=== PATIENT | female | born 1970 | race African-American/Black ===

== ENCOUNTER 2024-04-24 09:07 | Emergency (ER) | payer OTHER, SELFPAY ==
[2024-04-24 09:11] VITALS: BP 140/96; PULSE 127; RESP 20; TEMP 36.1; O2SAT 99
--- NOTE | 2024-04-24 09:22 | ED.GENADUL_ITS ---
Discharge Plan Disposition Patient Disposition: Home Discharge Details Clinical Impression: Closed fracture of left proximal humerus Primary Care Provider: Unknown,Unknown ED Provider: Patel Gamble Home Meds and New Rx's Prescriptions: New ketorolac 10 mg tablet 10 mg PO TID PRN (Reason: Pain) 5 Days Qty: 15 0RF Continued gabapentin 400 mg capsule 400 mg PO TID prednisone 10 mg tablet 10 mg PO DAILY levothyroxine [Euthyrox] 25 mcg tablet 25 mcg PO DAILY cyclobenzaprine 10 mg tablet 10 mg PO TID PRN (Reason: muscle spasm) Qty: 10 0RF Discharge Instructions Instructions: Upper Arm Fracture ED Additional Instructions: Please keep your arm in the sling but you may remove it for showering. You may perform task as normally capable without the use of left upper extremity Please continue to ice the shoulder to help with swelling and discomfort. If you have any significant worsening or change in symptoms feel free to return the emergency department for reassessment If you are unable to follow-up locally with orthopedist for further evaluation and discussion of stabilization or additional interventions if needed please follow-up with orthopedist when you return home Stand Alone Forms: Work Release Referrals: [facility] [Provider Group] (Please call the office tomorrow afternoon for discussion of follow-up appointment) Discharge Data Discharge Date/Time-TO BE ENTERED AT DEPARTURE: 04/24/24 10:44 HPI General Mode of arrival: ambulatory . Date/Time Provider Initiated Documentation: 04/24/24 09:16 . Limitations to Documentation: no limitations . Information obtained by: patient and RN notes reviewed . History of Present Illness 53 year old F presents to the emergency department with the chief complaint of Left shoulder injury, described as severe, Quality is described as sharp, and is localized to the left (Shoulder). Patient started experiencing this day(s) (1) and it has been constant. No relieving factors improve symptom(s), No exacerbating factors reported . Patient notes no other symptoms.. Patient did receive the following treatments prior to arrival, NSAID Related Data Home Medications ?Medication ?Instructions ?Recorded ?Confirmed cyclobenzaprine 10 mg tablet 10 mg PO TID PRN muscle spasm #10 04/24/24 tabs gabapentin 400 mg capsule 400 mg PO TID 04/24/24 04/24/24 ketorolac 10 mg tablet 10 mg PO TID PRN Pain 5 days #15 04/24/24 tabs levothyroxine 25 mcg tablet 25 mcg PO DAILY 04/24/24 04/24/24 (Euthyrox) prednisone 10 mg tablet 10 mg PO DAILY 04/24/24 04/24/24 Previous Rx's ?Medication ?Instructions ?Recorded cyclobenzaprine 10 mg tablet 10 mg PO TID PRN muscle spasm #10 04/24/24 tabs ketorolac 10 mg tablet 10 mg PO TID PRN Pain 5 days #15 04/24/24 tabs Allergies Allergy/AdvReac Type Severity Reaction Status Date / Time oxycodone (From Percocet) Allergy Intermediate rash Verified 04/24/24 09:13 hydrocodone (From Vicodin) Allergy rash Verified 04/24/24 09:13 General Stated Complaint: Orthopedic ROSS: 3 Review of Systems Constitutional Constitutional: Denies headache(s) ENT Ears, Nose, Mouth, and Throat: Denies headache(s) Cardiovascular Cardiovascular: Denies chest pain and Denies dyspnea Respiratory Respiratory: Denies dyspnea Musculoskeletal Musculoskeletal: Reports as per HPI, Reports arthralgias, Reports joint swelling and Reports limited range of motion Neurologic Neurologic: Denies headache(s) Exam Const General: cooperative, no acute distress and not ill appearing Orientation: alert, awake and oriented x3 HENMT Mouth: moist mucous membranes Resp Effort & Inspection: normal respiratory effort, able to speak in complete sentences and no respiratory distress Auscultation: clear to auscultation bilaterally Cardio Rate: regular rate Rhythm: regular rhythm Heart Sounds: S1 normal and S2 normal Skin General skin exam: no rashes or lesions noted Neuro General: patient alert, patient awake, patient oriented x3, moves all extremities and no focal motor deficits Sensory Exam: no sensory deficits noted Extrem General: normal exam except as noted Left upper extremity: shoulder/upper arm Details: tenderness Location: of the proximal humerus, swelling Location: of the proximal humerus and of the mid- shaft humerus, axillary nerve sensory function normal and abnormal ROM Details: held in an abnormal fashion Details: in ADduction and in internal rotation Course Vital Signs Vital signs: Vital Signs Temperature 36.1 C L 04/24/24 09:11 Pulse 127 H 04/24/24 09:11 Respiratory Rate 20 04/24/24 09:11 Blood Pressure 140/96 H 04/24/24 09:11 Pulse Oximetry 99 04/24/24 09:11 Temperature 36.1 C L 04/24/24 09:11 Temperature Source Skin 04/24/24 09:11 Pulse 127 H 04/24/24 09:11 Respiratory Rate 20 04/24/24 09:11 Blood Pressure 140/96 H 04/24/24 09:11 Blood Pressure Position Sitting 04/24/24 09:11 Pulse Oximetry 99 04/24/24 09:11 Oxygen Delivery Method Room Air 04/24/24 09:11 Oxygen Flow Rate 0 04/24/24 09:11 Pain Level 10 04/24/24 09:11 Medical Decision Making Patient presenting to the emergency department for chief complaint of fall with left shoulder injury. Patient states that she was standing on a chair to get something yesterday and fell landing on her aspect of left shoulder. Patient denies any other injury or trauma, head injury, syncope neck or back pain. Patient reports taking acetaminophen ibuprofen along with her normally prescribed muscle relaxer to help her with sleep. This morning woke up with continued swelling and pain causing her to come to the emergency department. Physical exam shows significant tenderness to the proximal humerus of the left arm along with the swelling. No clavicular tenderness, clear lung sounds throughout all lung plata, normal cardiac exam, pulse sensation and movement intact distal to injury. Will plan on performing radiological imaging for evaluation of potential fracture versus dislocation Review of radiological imaging shows proximal humerus fracture. Patient placed in a sling and was placed on Ortho follow-up. 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 Given patient's allergies to narcotics with reported rash and tongue swelling will continue with use of nonnarcotics and will give additional Flexeril as patient states she only has a couple tablets left that she normally uses for spinal sten osis. After discussion of diagnosis and plan of care patient has no further needs, questions, or concerns and states clear understanding to return to the emergency department for any worsening symptoms. This documentation was generated using [employer] system, please disregard any oddities of phrase or misspellings. Imaging Data Radiologic Study: Imaging: X-Ray Radiologist's impression: Exam(s) PROCEDURE INFORMATION: Exam: XR Left Shoulder Exam date and time: 04/24/2024 9:55 AM Age: 53 years old Clinical indication: Other: Trauma TECHNIQUE: Imaging protocol: Radiologic exam of the left shoulder. Views: 2 or more views. COMPARISON: No relevant prior studies available. FINDINGS: Bones/joints: Comminuted humeral head fracture with mild impaction. No definite dislocation. The acromioclavicular joint is intact Soft tissues: Normal. IMPRESSION: Comminuted/impacted humeral head fracture without dislocation Quality:SDOH Health Related Social Needs: No Data to Display PFSH All Active Problems (Updated 04/24/24 @ 10:29 by Patel Gamble NP) Closed fracture of left proximal humerus (Acute) Spinal stenosis (Acute) Arthritis (Acute) Social History Smoking/Tobacco Use Status: Current every day Tobacco Type: cigarettes Smoking risk assessment performed?: Yes Alcohol Intake: current Alcohol Intake frequency: a few times a week Drug use: Never Housing: apartment Do you feel safe at home: Yes Do you feel safe in your relationship?: Yes
--- NOTE | 2024-04-24 10:01 | DI.RAD_ITS ---
Exam(s) XR SHOULDER LT COMPLETE 2+V EXAM: XR SHOULDER LT COMPLETE 2+V CLINICAL HISTORY: trauma. TECHNIQUE: 2D digital imaging was performed of the left shoulder. Four images were obtained. AP, G rashey and Y views were obtained. COMPARISON: No exams were available for comparison FINDINGS: BONES: There is an acute fracture of the proximal humerus. The fracture occurs through the surgical neck and extends into the greater tuberosity. The fracture is comminuted. There is mild impaction o f the fracture noted. No bony destructive lesion is seen. JOINTS: No dislocation present. The acromioclavicular and glenohumeral joints are intact. SOFT TISSUE: Normal. IMPRESSION: Comminuted fracture involving the proximal humerus with involvement of the surgical neck and greater tuberosity. DATA REPOSITORY: RADIATION DOSE DELIVERED:
--- NOTE | 2024-04-24 10:06 | DI.VRAD_ITS ---
PROCEDURE INFORMATION: Exam: XR Left Shoulder Exam date and time: 04/24/2024 9:55 AM Age: 53 years old Clinical indication: Other: Trauma TECHNIQUE: Imaging protocol: Radiologic exam of the left shoulder. Views: 2 or more views. COMPARISON: No relevant prior studies available. FINDINGS: Bones/joints: Comminuted humeral head fracture with mild impaction. No definite dislocation. The acromioclavicular joint is intact Soft tissues: Normal. IMPRESSION: Comminuted/impacted humeral head fracture without dislocation Dictated and Authenticated by: Agus Pool MD. Ordering:CHRISTOPHER Sweeney MD
--- OUTSIDE RECORDS SUMMARY | 2024-04-24 10:22 | XMS_ITS | Encounter Summary ---
Author Organization [facility] Address [facility] [place] [address] Care Team Providers Care Records Tech Name Role Phone Pcp, No Primary Care Provider Unavailabl e Encounter Details Date Type Department Care Team (Late st Contact Info) Description 10/16/2022 Orders Only [facility] [address] [address] [facility] [place] [facility] [place] [address] Cleopatra Oro LPN Social History Tobacco Use Types Packs/Day Years Used Date Smoking Tobacco: Every Day Cigarettes Smokeless Tobacco: Never Alcohol Use Standard Drinks/Week Comments Yes 2 (1 standard drink = 0.6 oz pur e alcohol) Sex and Gender Information Value Date Recorded Sex Assigned at Not on file Gender Identity Not on file Sexual Orientation Not on file COVID-19 Exposure Response Date Recorded In the last 10 days, have yo u been in contact with someone who was confirmed or suspected to have Coronavirus/COVID-19? No / Unsure 10/11/2022 4:23 PM FISHING [employer]SEL [employer] documented as of this encounter Plan of Treatment Not on file documented as of this encounter Visit Diagnoses Not on filedocumented in this encounter Care Teams Records Tech Relationship Specialty Start Date End Date Pcp, No PCP - General 10/11/22 documented as of this encounter
--- OUTSIDE RECORDS SUMMARY | 2024-04-24 10:22 | XMS_ITS | Encounter Summary ---
Author Organization [facility] Address [address] [place] [address] Care Team Providers Care Registered Dietitian Name Role Phone Pcp, No Primary Care Provider Unavailabl e Reason for Visit * Reason Comments Pain * Office Visit - Consult or New Patient (Routine) - Closed Specialty Diagnoses / Procedures Referred By Contac t Referred To Contact Orthopaedic, Spine / Orthopaedics Diagnoses Osteoarthritis of spine with radiculopathy, cervical region M47.22 (ICD-10-CM) - Osteoarthritis of spine with radiculopathy, cervical region Procedures NEW PATIENT Stan Montes De Oca MD [facility] [place] [address] Stan Montes De Oca MD [facility] [address] [place] [address] Referral ID Status Reason Start Date Expiration Date V isits Requested Visits Authorized [id number] Closed Specialty Services Required 10/15/2022 11/19/2023 1 1 Encounter Details Date Type Department Care Team (Late st Contact Info) Description 10/15/2022 11:00 AM IT WEB DEVELOPMENT CONSULTANT Office Visit [facility] [address] [place] [address] Stan Montes De Oca MD [facility] [place], [place] [id number] Cervical spinal stenosis (Primary Dx); Radiculopathy of cervical spine; Congenital cervical spine stenosis; Cervical spondylosis with myelopathy and radiculopathy; Neural foraminal stenosis of cervical spine Social History Tobacco Use Types Packs/Day Years Used Date Smoking Tobacco: Every Day Cigarettes Smokeless Tobacco: Never Tobacco Cessation:Ready to Q uit: Not Asked; Counseling Given: Not Answered Alcohol Use Standard Drinks/Week Comments Yes 2 [...] Coronavirus/COVID-19? No / Unsure 10/11/2022 4:23 PM IT WEB DEVELOPMENT CONSULTANT documented as of this encounter Progress Notes * Stan Montes De Oca MD - 10/15/2022 11:00 AM CST [facility] Spine Surgery Patient name: Annika Finnegan Date of : 1970 Date of visit: 10/15/22 Provider: Stan Montes De Oca MD Referred by: Stan Montes De Oca MD [facility] [place] [address] Chief Complaint Patient presents with ??? Neck - Pain Right arm pain and numbness Neck pain: 0%; Arm pain: 100%. History of present illness: Today I had the pleasure of seeing Annika Finnegan in our spine surgery clinic. She is a 52 y.o. female who presents for evaluation of right arm pain and numbness which started early August 2022. Patient recalls no known injury associated with the onset of symptoms. She describes her pain originates in the upper mid back, goes across her scapula and down the right arm and stops about the rightbiceps area. This pain is moderate, and has been stable over time. Today, her pain level is at a 5/10 of intensity. Her pain is aggravated by sitting, and overused while doing housework, and improvedwith laying, resting and medications. She also noticed worsening pain with neck extension and rotati ng towards the right. Subjective weakness is present in her hands and right wrist, although she says this been going on for several years where she has been unable to extend bilateral thumbs and has had significant weakness extending her right wrist and bilateral finger weakness. Numbness is present and it is constant , in the right ring and small finger. Patient reports she has not noted gait instability, and does not use an assistive device for ambulation. She can climb stairs without difficulty. She has noted hand clumsiness or difficulty with fine motor functions, but she attributes this to her longstanding history of finger weakness. She reports absence of bladder and/or bowel control issues. 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 She states that these symptoms do interfere with her ability to perform her occupation and/or participate in activities she enjoys. She has tried the following treatments: Physical therapy: None Medications: Acetaminophen, NSAIDs, Steroids, Gabapentin, Muscle relaxants and [place] as needed whenher pain is really bad. She is only been taking [place] for the past 3 days. She also started a Medrol Dosepak yesterday with slight improvement in her pain. Spinal injections: No Spinal surgery: No Past medical history: She has no past medical history on file. Past surgical history: She has a past surgical history that includes Tubal ligation. Allergies: Percocet [oxycodone-acetaminophen] and Vicodin [hydrocodone-acetaminophen] Medications: She has a current medication list which includes the following prescription(s): cyclobenzaprine, gabapentin, hydrocodone-acetaminophen, ibuprofen, prednisone, and diclofenac. Family history: Her family history is not on file. Social History Occupational History ??? Not on file Tobacco Use ??? Smoking status: Every Day Packs/day: 1.00 Types: Cigarettes ??? Smokeless tobacco: Never Substance and Sexual Activity ??? Alcohol use: Yes Alcohol/week: 2.0 - 3.0 standard drinks Types: 2 - 3 Cans of beer per week ??? Drug use: Never ??? Sexual activity: Defer Review of Systems: I have reviewed all systems of the ROS with the patient, and it is listed in the clinical support section of the record. The patient intake section, which I have reviewed, provides additional information to the medical history and ROS. The patient's primary care physician will help with any other symptoms unrelated to her spine complaints. Physical Exam: Vital signs: There were no vitals taken for this visit.. Annika is accompanied today by her no relatives. She is alert, oriented, and cooperative with exam. She ambulates with a/an normal gait and does not use an assistive device for ambulation. She is ableto tandem walk, ableto toe walk, and able to heel walk. There is no gross coronal and/or sagittal plane deformity The skin is intact in the anterior neck and posterior cervical area. There are no scars from previous procedures. There is no tenderness to palpation over the cervical spine. There is pain with cervical spine range of motion worse with extension and rotating the cervical spine towards the right, (Spurling test) which recreates the right-sided arm pain extending into her biceps area. Motor exam: Upper Extremity Deltoids/Shoulder ER: Left: 4/5 Right: 4/5 Biceps: Left: 4+/5 Right: 4+/5 Wrist extensors: Left: 3+/5 Right: 2/5 Triceps: Left: 5/5 Right 5/5 Finger flexors/Oxygen Tank Filler: Left 4/5 Right 3/5 Hand Intrinsics: Left 3/5 Right 2/5 Lower Extremity IP/Hip adductors: Left: 4/5 Right: 4/5 Quads: Left: 5/5 Right: 5/5 TA: Left: 5/5 Right 5/5 EHL: Left 4-/5 Right 4/5 GSC: Left 5/5 Right 5/5 Reflexes: hyporeflexic throughout Sensory: There is absent sensation on the right small and ring finger. Special tests: Meyer's: negative bilaterally Clonus: No Babinski: absent bilaterally Lhermitte's sign: negative Spurling sign: Positive Imaging: X-Rays of the cervical spine were reviewed and interpreted by me today (Date/s: 10/11/22). The radiology report was reviewed. These reveal multilevel spondylosis worse at C2-3, C3-4, C4-5, C5-6, C6-C7, there is a slight anterolisthesis of C7 on T1. There is congenital stenosis of the spinal canal. An MRI of the cervical spine was reviewed and interpreted by me today (Date/s: 10/11/2022). The radiology report was reviewed. It shows multilevel disc bulges with mild stenosis at C3-4 with flattening of the spinal cord, moderate/severe stenosis at C4-5 with a CSF effacement circumferentially and flattening of the spinal cord, mild stenosis at C5-6 with flattening the spinal cord. There is mild foraminal stenosis bilaterally at C3-4, severe foraminal stenosis at C4-5 on the right, moderate on the left, Severe bilateral foraminal stenosis at C5-6, severe foraminal stenosis at C6-7 on the right, moderate on the left. Impression: 1. Cervical spinal stenosis 2. Radiculopathy of cervical spine 3. Congenital cervical spine stenosis 4. Cervical spondylosis with myelopathy and radiculopathy 5. Neural foraminal stenosis of cervical spine Plan: We discussed the diagnosis, the natural history and surgical and non-surgical treatment options. I had an extensive discussion with her today regarding her symptoms, they are somewhat atypical, in the sense that she presents with profound bilateral hand intrinsic weakness and decreased fine motor function suggestive of myelopathy, but she has severe radicular pain in a C6 distribution. While her symptoms may be amenable to surgical intervention, additional workup is needed to make a specific surgical recommendation. I have ordered a cervical spine CT scan to further assess the foraminal stenosis which could explain her radicular pain, and this is not readily seen on MRI, a nerve conduction study to rule out any peripheral nerve issue as she has had longstanding inability to extend her bilateral thumbs, right wrist weakness, and bilateral hand intrinsic weakness. I ordered a right C5-6 transforaminal injection, as I suspect most of her radicular pain is from the right C6 nerve root. I refilled her gabapentin and Flexeril as this provides improvement in her symptoms. I referred her tophysical therapy. All of these will further assist with generating an adequate treatment plan. Should she fail conservative management, and depending on the degree of foraminal stenosis, specifically that at C6-C7, I will consider a two-level ACDF from C4-C6 versus a 3 level ACDF from C3-4 to C7. Patient will follow up with myself in 4 week(s), or call our office for a sooner follow if there's any issues and/or worsening symptoms. Stan Montes De Oca MD Nematology Teacher of Orthopaedic Surgery This note was composed in part with assistance from voice recognition software and may contain unrecognized grammatical errors. WEB DEVELOPMENT CONSULTANT documented in this encounter Plan of Treatment Not on file documented as of this encounter Visit Diagnoses Diagnosis Cervical spinal stenosis- Primary Radiculopathy of cervical spine Congenital cervical spine stenosis Cervical spondylosis with myelopathy and radiculopathy Neural foraminal stenosis of cervical spine documented in this encounter Care Teams Registered Dietitian Relationship Specialty Start Date End Date Pcp, No PCP - General 10/11/22 documented as of this encounter
--- OUTSIDE RECORDS SUMMARY | 2024-04-24 10:22 | XMS_ITS | Patient Health Record ---
Author Organization [facility] Address [address] [place] [address] Care Team Providers Care Table Cut Off Saw Operator Name Role Phone Reed [id number] Mis Unavailable Sariah [id number] Priscila Unavailable [phone] 20 Allergies Allergen (clinical drug ingredient) Drug/Non Drug Allergy documented on EMR Reaction Allergy Type Onset Date Status hydrocodone HYDROcodone hives Drug Allergy Act michael Reason For Referral No Information Medications Medication SIG (Take, Route, Frequency, Duration) Notes Start Date End Date Status Diclofenac 35 MG 1 capsule as needed Orally Three times a day As needed Active Ibuprofen 800 MG 1 tablet with food or milk as needed Orally every 8 hrs As needed Active Cyclobenzaprine HCl 10 MG 1 tablet at bedtime as needed Orally Once a day As needed Active Gabapentin 400 MG 1 capsule Orally 3 t imes a day Active Immunizations Vaccine Route Administration Date Status Comme nts PPD Aplisol ID Intradermal 07/10/2023 Administered Problems Problem Type SNOMED Code ICD Code Onset Dates Problem Status W/U Status Risk Notes Problem Osteoarthritis (322784495) Unspecified osteoarthritis, unspecified site (M19.90) Active confirmed Vital Signs Height 68 in 06/11/2023 Weight 139 lbs 06/11/2023 BMI 21.13 kg/m2 06/11/2023 Encounters Encounter Location Date Provider Diagnosis [id number] [facility] [address] [place] [address] 06/11/2023 Priscila Rolle Physical exam Z00.00 07140 [facility] [address] [place] [address] 07/10/2023 Mis Mcbride PPD screening test Z11.1 [id number] [facility] [address] [place] [address] 07/12/2023 Mis Mcbride PPD screening test Z11.1 [id number] [facility] [address] [place] [address] 06/10/2023 Assessments Encounter Date Diagnosis (ICD Code) Assessment Notes Treatment Notes Treatment Clinical Notes 06/11/2023 Physical exam (ICD-10 - Z00.00) Review with the patient or customer service representative teller any required lab work, forms, or reporting requirements for physical. Order any necessary outside lab work and complete the required forms or documentation, scan and return to the patient. 07/10/2023 PPD screening test (ICD-10 - Z11.1) Patient reports they have never had a positive ppd reaction. 07/12/2023 PPD screening test (ICD-10 - Z11.1) Document patient's PPD results in their immunization history and import PPD results from the right chart panel ([facility]). Scan PPD result form into patient's chart. Plan Of Treatment No Information Insurance Providers Payer Name Payer Address Payer Phone Subscriber Number Group Number Insured Name Patient Relationship to Insured Coverage Start Date Coverage End Date [facility] [address] [place] [address] [id number] Annika Finnegan Self - patient is the insured Medical (General) History Medical History History ICD Code Spinal stenosis M48.00 Unspecified osteoarthritis, unspecified site M19.90 Surgical History Surgery Date(Month/Year) Bilateral tubal ligation 22 years ago
--- OUTSIDE RECORDS SUMMARY | 2024-04-24 10:22 | XMS_ITS | Encounter Summary ---
Author Organization [facility] Address [facility] [place] [address] Care Team Providers Care Broaching Machine Operator Name Role Phone Pcp, No Primary Care Provider Unavailabl e Reason for Visit * Reason Comments Arm Pain * Auth/Cert (Routine) Specialty Diagnoses / Procedures Referred By Contac t Referred To Contact Diagnoses Osteoarthritis of spine with radiculopathy, cervical region Referral ID Status Reason Start Date Expiration Date Visits Re quested Visits Authorized [id number] 1 1 Encounter Details Date Type Department Care Team (Late st Contact Info) Description 10/11/2022 4:30 PM IMPROVEMENT INTERN - 10/13/2022 3:37 PM IMPROVEMENT INTERN Emergency [address] [id number] Sumeet Neves MD [address] [place] [address], [address] [place] [address] Amadeo Kennedy MD [address] [place] [id number] Mary Galvan MD [address] [place] [phone] Vesta Tesfaye MD [address] [place] [id number] Discharge Disposition: Home or Self Care Social History Tobacco Use Types Packs/Day Years [...] Coronavirus/COVID-19? No / Unsure 10/11/2022 4:23 PM IMPROVEMENT INTERN documented as of this encounter Last Filed Vital Signs Vital Sign Reading Time Taken Comments Blood Pressure 156/91 10/13/2022 12:00 PM IMPROVEMENT INTERN Pulse 63 10/13/2022 12:00 PM IMPROVEMENT INTERN Temperature 36.5 ??C (97.7 ??F) 10/13/2022 12:[address] Respiratory Rate 18 10/13/2022 12:00 PM IMPROVEMENT INTERN Oxygen Saturation 100% 10/13/2022 12:00 PM IMPROVEMENT INTERN Inhaled Oxygen Concentration - - Weight 68 kg (150 lb) 10/11/2022 4:24 PM IMPROVEMENT INTERN Height 177.8 cm (5' 10) 10/11/2022 11:23 PM IMPROVEMENT INTERN Body Mass Index 21.52 10/11/2022 4:24 PM IMPROVEMENT INTERN documented in this encounter Discharge Summaries * Vesta Tesfaye MD - 10/13/2022 3:11 PM CST Images from the original note were not included. HOSPITALIST DISCHARGE SUMMARY PATIENT: Annika Finnegan ROOM:[id number]/[id number] :1970 FACILITY: [facility] PCP: No Pcp DATE OF ADMISSION: 10/11/2022 DATE OF DISCHARGE: 10/13/2022 ADMISSION DIAGNOSIS: Osteoarthritis of spine with radiculopathy, cervical region [M47.22] DISCHARGE DIAGNOSES: Principal Problem: Osteoarthritis of spine with radiculopathy, cervical region Active Problems: Compression fracture of T12 vertebra with routine healing Intractable pain Resolved Problems: * No resolved hospital problems. * HOSPITAL COURSE: Annika Finnegan is a 52 y.o. female with past medical history significant for arthritis, tobacco dependence who presented to the ED with chief complaint of pain and tingling from neck down to right arm intermittent nature but acutely worsening today. She was noted to have significant OA of the cervical spine likely leading to radicular symptoms. She was also noted to have acute on chronic T 12 compression fracture without retropulsion. Ortho spine was consulted from the ED who recommended short-term steroids and outpatient follow- up. She was admitted for further pain control. She was startedon PO regimen with gabapentin, NSAIDs, muscle relaxant, and narcotic for breakthrough. She was discharged home and referred to spine surgeon for further follow-up. PHYSICAL EXAM: Vital Signs (last day) Date/Time Temp Pulse Resp BP SpO2 10/13/22 1200 36.5 (97.7) 63 18 156/91 100 10/13/22 0800 37 (98.6) 61 16 138/77 100 10/13/22 0355 37 (98.6) 66 15 128/81 100 10/12/22 2354 36.7 (98.1) 66 16 134/84 100 10/12/22 1906 36.9 (98.5) 69 17 120/68 100 10/12/22 1656 36.8 (98.2) 76 20 158/92 100 10/12/22 1228 36.5 (97.7) 70 16 121/73 100 10/12/22 0729 36.9 (98.4) 68 18 119/76 100 10/12/22 0300 36.9 (98.4) 70 20 129/77 98 PHYSICAL EXAM: GEN: Alert and appropriately conversant HEENT: atraumatic and normocephalic NECK: Supple and nontender CHEST: CTA, no wheezes, no rhonchi, no crackles CARDIOVASCULAR: Normal rate with regular rhythm ABDOMEN: Soft, nontender, nondistended, bowel sounds are present EXTREMITIES: no edema and no cyanosis SKIN: No rash, dry and warm NEUROLOGY: No new focal motor or sensory deficits; dminished sensation to light touch in RUE medialforearm and digits 4/5. Strength intact and symmetric. DISCHARGE CONDITION: Improved DISCHARGE MEDICATIONS: Discharge Medications New Medications Sig cyclobenzaprine 5 mg tablet Commonly known as: FLEXERIL 5 mg, oral, 3 times daily PRN gabapentin 400 mg capsule Commonly known as: NEURONTIN 400 mg, oral, 3 times daily PRN HYDROcodone-acetaminophen 5-325 mg per tablet Commonly known as: NORCO 1 tablet, oral, Every 4 hours PRN predniSONE 20 mg tablet Commonly known as: DELTASONE Start taking on: October 13, 2022 Take 2 tablets (40 mg total) by mouth daily for 5 days, THEN 1 tablet (20 mg total) daily for 3 days, THEN 0.5 tablets (10 mg total) daily for 4 days. Medications To Continue Sig diclofenac 50 mg EC tablet Commonly known as: VOLTAREN 50 mg, oral, 3 times daily, 10/04/22 #20. Pt confirmed she take it PRN for pain and inflammation ibuprofen 800 mg tablet Commonly known as: ADVIL,MOTRIN 800 mg, oral, As needed DISCHARGE INSTRUCTIONS: Other Instructions Call provider for: Clinical worsening (Feeling worse) Call provider for: difficulty breathing, headache or visual disturbances Call provider for: hives Call provider for: persistent dizziness or light-headedness Call provider for: persistent nausea or vomiting Call provider for: redness, tenderness, or signs of infection (pain, swelling, redness, odor or green/yellow discharge around incision site) Call provider for: severe uncontrolled pain Call provider for: temperature >100.4 FUTURE SCHEDULED APPOINTMENTS AT [facility]: No future appointments. MOST RECENT LABS AND IMAGING (This may not include all labs and imaging done during hospitalization) Results from last 7 days Lab Units 10/13/2252010/12/22 0510/11/22 2218 [id number] RBC AUTO x10(6)/mcL 4.16 4.48 4.44 [id number] WBC AUTO x10(3)/mcL 5.8 5.4 6.2 93 HEMOGLOBIN gm/dL 11.7* 13.0 12.6 244 HEMATOCRIT % 37 39 38 [id number] PLATELETS AUTO x10(3)/mcL 276 317 316 Results from last 7 days Lab Units 10/13/22 0510/12/22 0533 10/11/22 2310 [id number] SODIUM mmol/L 138 136 012 1334217 POTASSIUM mmol/L 3.8 4.3 3.4 4908639 CHLORIDE mmol/L 108* 106 243 [id number] CARBON DIOXIDE mmol/L 23 19* 19* [id number] BUN mg/dL 20 16 18 269 CREATININE BLOOD mg/dL 0.68 0.71 0.75 [id number] CALCIUM mg/dL 8.9 9.6 9.6 7953777 GLUCOSE BLD mg/dL 89 151* 133* X-ray thoracic spine 2 views Result Date: 10/11/2022 1. No acute osseous findings. 2. Mild scoliosis. ws:[id number] Electronically Signed By SALOMON MENESES on 2022-10-11 20:54 CTZ Referring providers may call my direct line MRI cervical spine without contrast Result Date: 10/11/2022 1. Moderate to severe multilevel degenerative changes throughout the cervical spine with stenosis most significant at C3-C4, C4-C5, C5-C6 and C6-C7. 2. Heterogeneous nodule arising from the LEFT inferior thyroid lobe. Recommend nonemergent ultrasound for further evaluation. ws:[id number] Electronically Signed By SALOMON MENESES on 2022-10-11 18:55 CTZ Referring providers may call my direct line MRI thoracic spine without contrast Result Date: 10/11/2022 1. Findings which is for mild acute on chronic T12 compression fracture. No retropulsion. 2. No significant central canal or foraminal stenosis. 3. Small LEFT renal cyst. 4. Mild scoliosis centered at T12. ws:[id number] Electronically Signed By SALOMON MENESES on 2022-10-11 19:12 CTZ Referring providers may call my direct line XR C-Spine AP, lateral, flex, ext Result Date: 10/11/2022 1. No acute osseous findings. 2. Severe multilevel disc degeneration ws:[id number] Electronically Signed By SALOMON MENESES on 2022-10-11 20:53 CTZ Referring providers may call my direct line TOTAL DISCHARGE TIME: 15 minutes spent on clinical care at bedside as well as care coordination andcounseling Vesta Tesfaye MD Notes are generated using voice recognition software. It was reviewed briefly though errors may persist. Please contact me with any questions. OVEMENT INTERN documented in this encounter Discharge Instructions * Discharge Instructions* Sumeet Neves MD - 10/11/2022 9:32 PM IMPROVEMENT INTERN Please follow-up with Dr. Bradford Mendoza at the number and clinic address listed below. You may take your Medrol Dosepak as prescribed as well as the gabapentin. OVEMENT INTERN * Attachments The following attachments cannot be sent through Care Everywhere. * Degenerative Disk Disease (Swazi) documented in this encounter Medications at Time of Discharge Medication Sig Dispensed Refills Start Date End Date cyclobenzaprine 5 mg tablet (FLEXERIL) Take 1 tablet (5 mg total) by mouth 3 times a day as needed for muscle spasms for up to 10 days. 30 tablet 10/13/2022 gabapentin 400 mg capsule (NEURONTIN) Take 1 capsule (400 mg total) by mouth 3 times a day as needed (nerve pain) for up to 5 days. 15 capsule 10/13/2022 predniSONE 20 mg tablet (DELTASONE) Take 2 tablets (40 mg total) by mouth daily for 5 days, THEN 1 tablet (20 mg total) daily for 3 days, THEN 0.5 tablets (10 mg total) daily for 4 days. 15 tablet 10/13/2022 diclofenac sodium 50 mg tablet,delayed release (VOLTAREN) Take 1 tablet (50 mg total) by mouth 3 times a day. 10/04/22 #20. Pt confirmed she take it PRN for pain and inflammation 10/04/2022 ibuprofen 800 mg tablet (ADVIL,MOTRIN) Take 1 tablet (800 mg total) by mouth as needed for mild pain. HYDROcodone 5 mg-acetaminophen 325 mg tablet (NORCO)Indications:O steoarthritis of spine with radiculopathy, cervical region Take 1 tablet by mouth every 4 hours as needed for moderate pain or severe pain for up to 3 days. 12 tablet 10/13/2022 10/16/2022 documented as of this encounter Progress Notes * Mary Galvan MD - 10/12/2022 2:36 PM CST Images from the original note were not included. 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 The work-up revealed acute on chronic compression fracture of T12and cervical disc pathology. The patient is admitted to the general medicine floor and treated for the following Acute on chronic T12 compression fracture Kyphoplasty per IR has been requested for tomorrow morning Deferred to the hospitalist assuming care of this patient in the morning to follow-up Pain is better controlled with gabapentin scheduled and Dilaudid as needed I will add [place] as needed Add Senokot Hyperglycemia The patient received glucocorticoids in the hospital Denies a history of diabetes Avoid anticoagulation in the setting of potential intervention to his spine DVT PROPHYLAXIS: SCDs ANTICIPATED DISCHARGE IN NEXT 24H: No OBJECTIVE: Vital Signs (last day) Date/Time Temp Pulse Resp BP SpO2 10/12/22 1228 36.5 (97.7) 70 16 121/73 100 10/12/22 0729 36.9 (98.4) 68 18 119/76 100 10/12/22 0300 36.9 (98.4) 70 20 129/77 98 10/11/22 2313 36.5 (97.7) 70 20 136/89 100 10/11/22 2211 36.8 (98.2) 69 18 143/72 100 10/11/227 -- 79 20 145/81 99 10/11/22 1948 -- 79 18 100/64 99 10/11/22 1624 36.6 (97.9) 98 18 142/106 99 I/O (24H) 10/11 0700 10/12 0659 10/12 0700 10/13 0659 P.O. 222 Total Intake(mL/kg) 222 (3.3) Net +222 GENERAL: Awake alert oriented, interactive, cranial nerves II through XII grossly intact, good eye contact good affect CHEST: CTA, no wheezes, no rhonchi, no crackles CARDIOVASCULAR: Normal rate and regular rhythm,no murmur, regular rate and rhythm ABDOMEN: Soft, nontender, nondistended, bowel sounds are present EXTREMITIES: No cyanosis, no edema, No clubbing SKIN: No rash, dry and warm. NEUROLOGY: No new focal motor or sensory deficits CURRENT MEDICATIONS: gabapentin, 300 mg, oral, TID DATA REVIEWED: Results from last 7 days Lab Units 10/12/22 0533 10/11/228 [id number] WBC AUTO x10(3)/mcL 5.4 6.2 93 HEMOGLOBIN gm/dL 13.0 12.6 244 HEMATOCRIT % 39 38 [id number] PLATELETS AUTO x10(3)/mcL 317 316 Results from last 7 days Lab Units 10/12/22 0533 10/11/22 2310 10/11/228 [id number] SODIUM mmol/L 136 137 135* [id number] POTASSIUM mmol/L 4.3 3.4 3.3 4114373 CHLORIDE mmol/L 106 103 280 0298800 CARBON DIOXIDE mmol/L 19* 19* 18* [id number] BUN mg/dL 16 18 16 269 CREATININE BLOOD mg/dL 0.71 0.75 0.72 2692856 CALCIUM mg/dL 9.6 9.6 9.3 4469908 GLUCOSE BLD mg/dL 151* 133* 112* X-ray thoracic spine 2 views Result Date: 10/11/2022 1. No acute osseous findings. 2. Mild scoliosis. ws:[id number] Electronically Signed By SALOMON MENESES on 2022-10-11 20:54 CTZ Referring providers may call my direct line MRI cervical spine without contrast Result Date: 10/11/2022 1. Moderate to severe multilevel degenerative changes throughout the cervical spine with stenosis most significant at C3-C4, C4-C5, C5-C6 and C6-C7. 2. Heterogeneous nodule arising from the LEFT inferior thyroid lobe. Recommend nonemergent ultrasound for further evaluation. ws:[id number] Electronically Signed By SALOMON MENESES on 2022-10-11 18:55 CTZ Referring providers may call my direct line MRI thoracic spine without contrast Result Date: 10/11/2022 1. Findings which is for mild acute on chronic T12 compression fracture. No retropulsion. 2. No significant central canal or foraminal stenosis. 3. Small LEFT renal cyst. 4. Mild scoliosis centered at T12. ws:[id number] Electronically Signed By SALOMON MENESES on 2022-10-11 19:12 CTZ Referring providers may call my direct line XR C-Spine AP, lateral, flex, ext Result Date: 10/11/2022 1. No acute osseous findings. 2. Severe multilevel disc degeneration ws:[id number] Electronically Signed By SALOMON MENESES on 2022-10-11 20:53 CTZ Referring providers may call my direct line Mary Galvan MD Notes are generated using voice recognition software. It was reviewed briefly, however, errors may persist. Please contact me with any questions. OVEMENT INTERN * Maria Dolores Barraza PharmD - 10/12/2022 12:32 PM CST Medication History Note (Pharmacy) Patient Name: Annika Finnegan Date: 10/12/2022 A best possible medication history has been performed for Annika Finnegan by a pharmacy java development team lead using the following sources of information: Patient The patient???s preferred pharmacy is: [facility] [address] [place] [address] Additional Information: Sandro Alcantara Oct 12, 2022 11:29 AM CSMD no results. Pt confirmed med list. Pharmacy has updated and finalized the PLATFORM OPERATIONS DIRECTOR Med List: Medications Prior to Admission Medication Sig ??? [DISCONTINUED] acetaminophen ER 650 mg tablet,extended release (TYLENOL) Take 1 tablet (650 mg total) by mouth as needed for mild pain or moderate pain (arthritis pain). ??? diclofenac sodium 50 mg tablet,delayed release (VOLTAREN) Take 1 tablet (50 mg total) by mouth 3 times a day. 10/04/22 #20. Pt confirmed she take it PRN for pain and inflammation ??? ibuprofen 800 mg tablet (ADVIL,MOTRIN) Take 1 tablet (800 mg total) by mouth as needed for mildpain. Please call with any questions. Thank you, Maria Dolores K Madi, PharmD OVEMENT INTERN documented in this encounter H&P Notes * Rosa Garcia Gladys, NEWSPAPER PHOTOJOURNALIST - 10/11/2022 11:09 PM CST Images from the original note were not included. HOSPITALIST HISTORY & PHYSICAL PATIENT: Annika Finnegan :1970 PCP: No Pcp FACILITY: [facility] CHIEF COMPLAINT: Arm tingling HISTORY OF PRESENT ILLNESS: Annika Finnegan is a 52 y.o. female with past medical history significant for arthritis, tobacco dependence who presented to the ED with chief complaint of pain and tingling from neck down to right arm intermittent nature but acutely worsening today. Associated weakness. Numbness and tingling symptoms now constant in localized to fourth and fifth digits of right hand. ED lab work largely unremarkable. Serum carbon dioxide 18. X-ray thoracic spine no acute osseous findings mild scoliosis. [id number] no acute osseous findings several multilevel disc degeneration. MRI thoracic spine without contrast findings which is for mild acute on chronic T12 compression fracture no retropulsion no sign ificant central canal or foraminal stenosis small left renal cyst mild scoliosis centered at T12. MRI cervical spine moderate to severe multilevel degenerative changes throughout the cervical spine with stenosis most significant at C3-C4 C4-C5 C5-C6 and C6-C7, at her cutaneous nodule arising from the left inferior thyroid lobe recommend nonemergent ultrasound for further evaluation. Orthopedic spine surgeon Dr. Bradford Mendoza consulted in the ED via phone. Recommended no surgical intervention at this time but will need outpatient follow-up for cervical spine stenosis as well as incidentally noted T12 mild compression fracture. Recommended Medrol Dosepak, gabapentin. Patient pain was not able to b e controlled with IV narcotics in the ED. Admitted for intractable pain. Patient lying in bed in no acute distress at time of exam. She endorses above presentation to the ED. Reports paresthesias and pain progressively worsening over the past 3 weeks now constant in nature. Denies any chest pain, shortness of breath, abdominal pain, fevers, chills, abnormal bowel meds. Pain is still present but improving. PAST MEDICAL HISTORY: History reviewed. No pertinent past medical history. History reviewed. No past medical history pertinent negatives. PAST SURGICAL HISTORY: Past Surgical History: Procedure Laterality Date ??? TUBAL LIGATION ALLERGIES: Allergies Allergen Reactions ??? Percocet [Oxycodone-Acetaminophen] Hives (only) ??? Vicodin [Hydrocodone-Acetaminophen] Hives (only) HOME MEDICATIONS: Current Outpatient Medications Medication Instructions ??? acetaminophen (TYLENOL) 650 mg, oral, As needed ??? diclofenac (VOLTAREN) 50 mg, oral, 3 times daily ??? ibuprofen (ADVIL,MOTRIN) 800 mg, oral, As needed CURRENT INPATIENT MEDS: Scheduled Meds: gabapentin, 300 mg, oral, TID Continuous Infusions: PRN Meds: acetaminophen, 650 mg, oral, Q6H PRN HYDROmorphone, 0.5 mg, intravenous, Q6H PRN melatonin, 3 mg, oral, Nightly PRN polyethylene glycol, 17 g, oral, Daily PRN FAMILY HISTORY: History reviewed. No pertinent family history. SOCIAL HISTORY: Social History Socioeconomic History ??? Marital status: Single Spouse name: Not on file ??? Number of children: Not on file ??? Years of education: Not on file ??? Highest education level: Not on file Occupational History ??? Not on file Tobacco Use ??? Smoking status: Every Day Packs/day: 1.00 Types: Cigarettes ??? Smokeless tobacco: Never Substance and Sexual Activity ??? Alcohol use: Yes Alcohol/week: 2.0 - 3.0 standard drinks Types: 2 - 3 Cans of beer per week ??? Drug use: Never ??? Sexual activity: Defer Other Topics Concern ??? Not on file Social History Narrative ??? Not on file Social Determinants of Health Financial Resource Strain: Not on file Food Insecurity: Not on file Transportation Needs: Not on file Physical Activity: Not on file Stress: Not on file Social Connections: Not on file Intimate Partner Violence: Not on file Housing Stability: Not on file REVIEW OF SYSTEM: 10 systems reviewed and are negative except as per HPI VITALS: Vital Signs (last day) Date/Time Temp Pulse Resp BP SpO2 10/12/22 0300 36.9 (98.4) 70 20 129/77 98 10/11/22 2313 36.5 (97.7) 70 20 136/89 100 10/11/22 2211 36.8 (98.2) 69 18 143/72 100 10/11/222056 -- 79 20 145/81 99 10/11/22 1948 -- 79 18 100/64 99 10/11/22 1624 36.6 (97.9) 98 18 142/106 99 PHYSICAL EXAM: GEN: Alert and appropriately conversant in no acute distress; oriented to person, place, time HEENT: Atraumatic and normocephalic NECK: Supple,not tender, trachea midline CHEST: CTA, no wheezes, no rhonchi, no crackles with no increased work of breathing, on room air CARDIOVASCULAR: Normal rate with regular rhythm; appears well perfusing ABDOMEN: Soft, nontender, nondistended, bowel sounds are present EXTREMITIES: No edema and no cyanosis SKIN: No rash, dry and warm NEUROLOGY: Right upper extremity paresthesias localized to inner forearm and fourth and fifth digits decreased strength below the elbow of the right upper extremity otherwise no focal motor or sensory deficits; follows commands RESULTS: Results from last 7 days Lab Units 10/11/228 [id number] RBC AUTO x10(6)/mcL 4.44 0040737 WBC AUTO x10(3)/mcL 6.2 93 HEMOGLOBIN gm/dL 12.6 244 HEMATOCRIT % 38 8516911 PLATELETS AUTO x10(3)/mcL 316 Results from last 7 days Lab Units 10/11/22 2310 10/11/228 [id number] SODIUM mmol/L 137 135* 1746878 POTASSIUM mmol/L 3.4 3.3 5912937 CHLORIDE mmol/L 103 712 [id number] CARBON DIOXIDE mmol/L 19* 18* 3857577 BUN mg/dL 18 16 269 CREATININE BLOOD mg/dL 0.75 0.72 0044583 CALCIUM mg/dL 9.6 9.3 5221634 GLUCOSE BLD mg/dL 133* 112* X-ray thoracic spine 2 views Result Date: 10/11/2022 1. No acute osseous findings. 2. Mild scoliosis. ws:[id number] Electronically Signed By SALOMON MENESES on 2022-10-11 20:54 CTZ Referring providers may call my direct line MRI cervical spine without contrast Result Date: 10/11/2022 1. Moderate to severe multilevel degenerative changes throughout the cervical spine with stenosis most significant at C3-C4, C4-C5, C5-C6 and C6-C7. 2. Heterogeneous nodule arising from the LEFT inferior thyroid lobe. Recommend nonemergent ultrasound for further evaluation. ws:[id number] Electronically Signed By SALOMON MENESES on 2022-10-11 18:55 CTZ Referring providers may call my direct line MRI thoracic spine without contrast Result Date: 10/11/2022 1. Findings which is for mild acute on chronic T12 compression fracture. No retropulsion. 2. No significant central canal or foraminal stenosis. 3. Small LEFT renal cyst. 4. Mild scoliosis centered at T12. [id number] Electronically Signed By SALOMON MENESES on 2022-10-11 19:12 CTZ Referring providers may call my direct line XR C-Spine AP, lateral, flex, ext Result Date: 10/11/2022 1. No acute osseous findings. 2. Severe multilevel disc degeneration ws:[id number] Electronically Signed By SALOMON MENESES on 2022-10-11 20:53 CTZ Referring providers may call my direct line EKG: PROBLEM LIST: Principal Problem: Osteoarthritis of spine with radiculopathy, cervical region Resolved Problems: * No resolved hospital problems. * ASSESSMENT: Annika Finnegan is a 52 y.o. female with past medical history significant for arthritis, tobacco dependence who presented to the ED with chief complaint of pain and tingling from neck down to right arm intermittent nature but acutely worsening today. Associated weakness. Numbness and tingling symptoms now constant in localized to fourth and fifth digits of right hand. PLAN: Admit to medicine Osteoarthritis of spine with radiculopathy T12 compression fracture Intractable acute on chronic pain -Reviewed imaging findings as above as well as spine recommendations -Patient will need follow-up with spine for above findings -Continue multimodal pain control Thyroid nodule -Will need outpatient follow-up and thyroid ultrasound for incidental finding Restart pt home medications pending verification as appropriate. DVT PROPHYLAXIS: SCDS Rosa Garcia APRN Notes are generated using voice recognition software. It was reviewed briefly though errors may persist. Please contact me with any questions. OVEMENT INTERN documented in this encounter ED Notes * Sumeet Neves MD - 10/11/2022 4:28 PM CST ED Provider Notes for [facility] Emergency Department encounter Chief Complaint Patient presents with ??? Arm Pain History of Present Illness History obtained per patient Annika Finnegan is a 52 y.o. female with PMH listed below who presents to triage for acute on chronic back and neck pain with worsening numbness tingling and weakness to the right upper extremity. Patient notes numbness and tingling intermittent now persistent on the right particularly of the fourth and fifth right hand extending up to the midway portion of her right arm pain worsened with movement of her right arm and shoulder. No chest pain or shortness of breath. No exertional symptoms. Previous History History reviewed. No pertinent past medical history. History reviewed. No past medical history pertinent negatives. History reviewed. No pertinent surgical history. No family history on file. Review of Systems Review of Systems All other systems reviewed and are negative. Pertinent positives and negatives as above. Physical Exam Physical Exam ED Triage Vitals Temp Pulse Resp BP SpO2 10/11/22 1624 10/11/22 1624 10/11/22 1624 10/11/22 1624 10/11/22 1624 36.6 ??C (97.9 ??F) 98 18 (!) 142/106 99 % Temp src Pulse Source Patient Position BP Location FiO2 (%) 10/11/22 2211 10/11/22 1948 10/11/22 1948 10/11/221947 -- Oral SpO2/Pulse Ox Sitting Right arm Vitals signs and nursing note reviewed. Physical Exam Constitutional: General: She is not in acute distress. Appearance: She is not ill-appearing, toxic-appearing or diaphoretic. HENT: Head: Normocephalic and atraumatic. Mouth/Throat: Mouth: Mucous membranes are moist. Pharynx: Oropharynx is clear. Eyes: Extraocular Movements: Extraocular movements intact. Conjunctiva/sclera: Conjunctivae normal. Cardiovascular: Rate and Rhythm: Normal rate and regular rhythm. Pulses: Normal pulses. Heart sounds: Normal heart sounds. Comments: 2+ radial pulse bilaterally Pulmonary: Effort: Pulmonary effort is normal. Breath sounds: Normal breath sounds. Abdominal: General: Abdomen is flat. Palpations: Abdomen is soft. Musculoskeletal: Right lower leg: No edema. Left lower leg: No edema. 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 Neurological: General: No focal deficit present. Mental Status: She is alert and oriented to person, place, and time. ED Labs & Imaging Labs Reviewed CBC W/ DIFFERENTIAL BMP SARS-COV-2 PCR X-ray thoracic spine 2 views Final Result PROCEDURE: THORACIC SPINE, 2 VIEWS TECHNIQUE: Thoracic spine radiographs, including AP and lateral projections. CPT 24620 HISTORY: Arm Pain; Osteoarthritis of spine with radiculopathy, cervical region; Right arm pain; Not Applicable. COMPARISONS: None. FINDINGS: Alignment: Mild RIGHT convexity scoliosis centered at T8-T9. Vertebral body height: Normal. Disk spaces: Normal. Fracture(s): None. Bone mineralization: Normal. IMPRESSION: 1. No acute osseous findings. 2. Mild scoliosis. [id number] Electronically Signed By SALOMON MENESES on 2022-10-11 20:54 CTZ Referring providers may call my direct line XR C-Spine AP, lateral, flex, ext Final Result PROCEDURE: CERVICAL SPINE, 4 VIEWS FLEXION AND EXTENSION TECHNIQUE: Cervical spine radiographs, minimum of four views, including AP, lateral, open-mouth odontoid and flexion and extension views. CPT 06424 HISTORY: Arm Pain; Osteoarthritis of spine with radiculopathy, cervical region; Right arm pain; Not Applicable COMPARISONS: None. FINDINGS: Prevertebral soft tissues: Normal. Alignment in neutral position: Normal. Vertebral movement with flexion and extension: Physiologic. Vertebral body height: Normal. Disk spaces: Severe disc narrowing throughout the cervical spine with moderate sized ventral spurs. Fracture(s): None. Facets: Mild multilevel facet arthrosis bilaterally throughout the cervical spine. Bone mineralization: Mild osteopenia. IMPRESSION: 1. No acute osseous findings. 2. Severe multilevel disc degeneration [id number] Electronically Signed By SALOMON MENESES on 2022-10-11 20:53 CTZ Referring providers may call my direct line MRI thoracic spine without contrast Final Result PROCEDURE: MRI THORACIC SPINE WITHOUT CONTRAST TECHNIQUE: Magnetic resonance imaging of the thoracic spine was performed using standard pulse sequences without contrast material. CPT 22625 HISTORY: Arm Pain; Mid-back pain COMPARISONS: None. FINDINGS: Overall straightening of the thoracic lordosis. There is mild LEFT convexity rotoscoliosis centered at T12. There is moderate of the T12 vertebral body with a small amount of edema along the superior endplate and vertebral body which could reflect acute on chronic fracture. Mild deformity of the superior endplate of T8, chronic. A rounded lesion displaying hyperintensity on T2 and isointense T1 signal may reflect a lipid poor hemangioma. The spinal cord is unremarkable. LEFT renal midpole cyst measures 8 x 8 mm. Diffuse disc bulge with endplate spurring is demonstrated at T11-T12 creating mild stenosis. Mild to moderate bilateral foraminal stenosis at T11-T12 due to facet arthrosis. IMPRESSION: 1. Findings which is for mild acute on chronic T12 compression fracture. No retropulsion. 2. No significant central canal or foraminal stenosis. 3. Small LEFT renal cyst. 4. Mild scoliosis centered at T12. ws:[id number] Electronically Signed By SALOMON MENESES on 2022-10-11 19:12 CTZ Referring providers may call my direct line MRI cervical spine without contrast Final Result PROCEDURE: MRI CERVICAL SPINE WITHOUT CONTRAST TECHNIQUE: Magnetic resonance imaging of the cervical spine was performed using standard pulse sequences without contrast material. CPT 06516 HISTORY: Arm Pain; Neck pain, chronic COMPARISONS: None. FINDINGS: Straightening of the cervical lordosis. Vertebral body heights are normal. Mildly heterogeneous marrow signal. The craniocervical junction is normal. The spinal cord displays normal signal throughout its course. The soft tissues of the neck are notable for a heterogeneous nodule arising from the LEFT inferior thyroid pole cysts measuring 2.0 x 1.8 x 1.8 cm. C2-C3: Severe degeneration of the disc. Diffuse disc bulge creates mild central stenosis. No foraminal stenosis. Normal facets. C3-C4: Severe degeneration of disks with endplate spurring. Moderate central canal stenosis with endplate spurring resulting in flattening the ventral cord. No foraminal stenosis. C4-C5: Severe degeneration of the disc with desiccation and loss of height. Endplate spurring leads to moderate central canal stenosis. Moderate to severe bilateral foraminal stenosis due to uncinate spurring. C5-C6: Moderate degeneration of disks with desiccation and loss of height. Diffuse disc bulge creates mild central stenosis. Severe RIGHT and moderate LEFT foraminal stenosis due to uncinate spurring. C6-C7: Moderate degeneration of disks with desiccation and loss of height. Diffuse bulge creates mild central stenosis. Moderate bilateral foraminal stenosis due to uncinate spurring. C7-T1: No central canal or foraminal stenosis. IMPRESSION: 1. Moderate to severe multilevel degenerative changes throughout the cervical spine with stenosis most significant at C3-C4, C4-C5, C5-C6 and C6-C7. 2. Heterogeneous nodule arising from the LEFT inferior thyroid lobe. Recommend nonemergent ultrasound for further evaluation. ws:[id number] Electronically Signed By SALOMON MENESES on 2022-10-11 18:55 CTZ Referring providers may call my direct line ED Medications Medications acetaminophen (TYLENOL EXTRA STRENGTH) tablet 1,000 mg (1,000 mg oral Given 10/11/221936) ketorolac (TORADOL) injection 15 mg (15 mg intravenous Given 10/11/221936) gabapentin (NEURONTIN) capsule 300 mg (300 mg oral Given 10/11/221957) oxyCODONE (ROXICODONE) immediate release tablet 5 mg (5 mg oral Given 10/11/221957) dexamethasone (DECADRON) 4 mg/mL injection 8 mg (8 mg intravenous Given 10/11/222054) HYDROmorphone (PF) (DILAUDID) injection 0.5 mg (0.5 mg intravenous Given 10/11/222106) traMADoL (ULTRAM) tablet 50 mg (50 mg oral Given 10/11/222209) Vitals Patient Vitals for the past 24 hrs: BP Temp Temp src Pulse Resp SpO2 Weight 10/11/222210 (!) 143/72 36.8 ??C (98.2 ??F) Oral 69 18 100 % -- 10/11/222056 (!) 145/81 -- -- 79 20 99 % -- 10/11/221947 100/64 -- -- 79 18 99 % -- 10/11/22 1624 (!) 142/106 36.6 ??C (97.9 ??F) -- 98 18 99 % 68 kg (150 lb) ED Course & MDM ED Course & Medical Decision Making Annika Finnegan is a 52 y.o. female who presents right arm pain numbness and tingling initially intermittent now persistent. Given persistent neurologic symptoms with a positive Spurling test MRI ofthe C-spine and T-spine obtained showing significant cervical spinal stenosis rated as severe by radiology. Discussed case with orthopedic spine surgeon Dr. Montes De Oca via telemetry consult who recommended no surgical intervention at this time but will need outpatient follow-up for her cervical spine stenosis and also incidentally noted T12 mild compression fracture. He recommended Medrol Dosepak gabapentin. Unfortunately after obtaining flexion-extension films of her C-spine she had worsening ra dicular pain to her right arm which had difficulty being treated even with IV narcotics patient states she feels unsafe going home as pain is difficult been difficult to manage she does not know she would be able to manage her own pain at home with current gabapentin Tylenol ibuprofen as well as steroids. Will admit for pain management. Disposition possibilities discussed included hospitalization for further workup and management Ultimately, the patient was ADMITTED to the hospital. Case was discussed with admitting team who agrees and is amenable to this plan. MDM - Laboratory and imaging tests ordered as above have been independently reviewed by me. - PARENTERAL MEDICATIONS administered during this encounter required close monitoring due to high risk of toxicity. ED Diagnoses & Medical Conditions Complicating Presentation Final diagnoses: Osteoarthritis of spine with radiculopathy, cervical region (Primary) Right arm pain Sumeet Neves MD 10/11/22 2215 OVEMENT INTERN * Georgia Rosenbaum RN - 10/11/2022 4:22 PM CST I have pain and tingling in my neck down my right arm to my fingertips.i have had it off and on since August but its worse and all the time now. OVEMENT INTERN documented in this encounter Miscellaneous Notes * Ancillary Service - Michelle Emerson RN - 10/12/2022 8:50 AM IMPROVEMENT INTERN Case Management Initial Assessment Patient Name: Annika Finnegan Date: 10/12/2022 Met with patient at bedside. 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 She is living with her son as she completes this assignment. Patient is independent and reports being otherwise healthy. Patient admitted with T12 compression fracture and pain control. Patient states pain is much improved. Patient denies CM needs at discharge. Patient does not have a PCP due to recent move, but does know how to get follow up care. Electronically signed by Michelle Emerson RN - 10/12/22 8:53 AM IMPROVEMENT INTERN 10/12/22 0849 Initial Case Managment Screening Patient screened by case management Yes Does patient have stable housing and adequate caregiver support if indicated? Yes Does the patient have insurance and the ability to meet anticipated discharge needs (including follow-up, post acute-care, and/or medications)? Yes Within the last 6 months, has the patient been in a facility (including admission to an acute care hospital), used home health care, durable medical equipment, or community resources? No Is the readmission risk score greater than or equal to 15% No Referral Data Referral Source [employer] Patient Information Verified/Updated Demographics Yes Authorized to Consent Patient Primary Caregiver Patient Support System Immediate family Strengths Good Support System Legal Information Advance Directives Living will/Advanced Care Plan;Power of Sales Contracts Analyst for health care/Appt for healthcare surrogate Advance Directives Status Information given Transportation Patient has Reliable Transportation Yes Patient's Current Mode for Transportation Private Car Activities of Daily Living Type of Residence Private residence Income Information Income Source Employed Barriers Stressor/Barriers to Treatment Recent Move Current Barriers to Discharge Discharge Planning Discharge Plan Is there a plan to readmit? No Treatment Plan and Goals of Care discussed with patient and/or family? Yes List Treatment Plans and Goals of Care discussed with patient/family: DCP home self care List of Facilities Given Patient/Family Declined Discharge confirmations (select all that apply) Patient/family are in agreement with plan as outlined Admission Primary Criteria Complex Care Requirements No OVEMENT INTERN documented in this encounter Plan of Treatment Not on file documented as of this encounter Procedures Procedure Name Priority Date/Time Associated Diagnosis Comments EGFRCR Routine 10/13/2022 5:21 AM IMPROVEMENT INTERN CBC Routine 10/13/2022 5:21 AM IMPROVEMENT INTERN BMP Routine 10/13/2022 5:21 AM IMPROVEMENT INTERN EGFRCR Routine 10/12/2022 5:33 AM IMPROVEMENT INTERN CBC Routine 10/12/2022 5:33 AM IMPROVEMENT INTERN BMP Routine 10/12/2022 5:33 AM IMPROVEMENT INTERN EKG ELECTROCARDIOGRAM STAT 10/12/2022 12:47 AM IMPROVEMENT INTERN EGFRCR Routine 10/11/2022 11:10 PM IMPROVEMENT INTERN PHOSPHORUS LVL Routine 10/11/2022 11:10 PM IMPROVEMENT INTERN MAGNESIUM LVL Routine 10/11/2022 11:10 PM IMPROVEMENT INTERN FOLATE LVL Routine 10/11/2022 11:10 PM IMPROVEMENT INTERN VITAMIN B12 LVL Routine 10/11/2022 11:10 PM IMPROVEMENT INTERN BMP Routine 10/11/2022 11:10 PM IMPROVEMENT INTERN EGFRCR STAT 10/11/2022 10:18 PM IMPROVEMENT INTERN SARS-COV-2 PCR Routine 10/11/2022 10:18 PM IMPROVEMENT INTERN AUTO DIFF STAT 10/11/2022 10:18 PM IMPROVEMENT INTERN CBC W/ DIFFERENTIAL STAT 10/11/2022 1 0:18 PM IMPROVEMENT INTERN BMP STAT 10/11/2022 10:18 PM IMPROVEMENT INTERN XR C-SPINE AP, LATERAL, FLEX, EXT STAT 10/11/2022 8:48 PM IMPROVEMENT INTERN XR SPINE THORACIC 2 VW STAT 3 8:48 PM IMPROVEMENT INTERN MRI THORACIC SPINE WO CONTRAST STAT 10/11/2022 6:20 PM IMPROVEMENT INTERN MRI CERVICAL SPINE WO CONTRAST STAT 10/11/2022 5:51 PM IMPROVEMENT INTERN documented in this encounter Results * eGFRcr (10/13/2022 5:21 AM IMPROVEMENT INTERN) Only the most recent of4 resultswithin the time period is included. eGFRcr >90 >=60 mL/min/1. 73 m2 [facility] Comment: The eGFRcr was calculated using the 2020 CKD-EPI eGFR creatinine equation, which does not include race as a factor. This equation is validated in individuals 18 years of age and older. These changes went into effect on 09/03/22 and due to the new equation, will not be trended with older eGFR. Values should be interpreted in the context of the patient's full clinical presentation. Reference: Jessica Carreno et al. A unifying approach for GFR estimation: recommendations of the NKF-ASN task force on reassessing the inclusion of race in diagnosing kidney disease. [place] Journal of Kidney Diseases (202) GFR Categories in Chronic Kidney Disease (CKD) GFR GFR (mL/min/1.73 Category: square meters) Interpretation: G1 90 or greater ?Normal or high* G2 60-89 ?Mild decrease* G3a 45-59 ?Mild to moderate decrease G3b 30-44 ?Moderate to severe decrease G4 15-29 ?Severe decrease G5 14 or less ?Kidney failure *In the absence of evidence of kidney damage, neither GFR category G1 nor G2 fulfill the criteria for CKD (Kidney Int Suppl 2013;3:1-150)This test was performed at: [facility],CLIA# [id number],Noman Reed M.D., Communication Skills Instructor,[address] [place], [place] [address], [place],[address],[facility] [place] Blood 10/13/2022 5:21 AM IMPROVEMENT INTERN 10/13/2022 6:08 AM IMPROVEMENT INTERN Rosa Parkerfrancis NEWSPAPER PHOTOJOURNALIST LAB BLOOD OR DERABLES [facility] [address] [address], * (ABNORMAL) CBC (10/13/2022 5:21 AM IMPROVEMENT INTERN) Only the most recent of2 resultswithin the time period is included. White Blood Cells 5.8 3.9 - 10.7 x10(3)/mc L [facility] Red Blood Cells 4.16 4.00 - 5.50 x10(6)/mc L [facility] Hemoglobin 11.7(L) 11.8 - 16.0 gm/dL [facility] Hematocrit 37 36 - 43 % [facility] Mean Cell Volume 89 81 - 98 fL [facility] Mean Cell Hemoglobin 28.1 27.0 - 32.0 pg [facility] Mean Cell Hemoglobin Concentration 31.5 31.0 - 35.0 gm/dL [facility] RDW SD 43.6 37.4 - 52.4 fL [facility] RDW CV 13.0 11.1 - 14.3 % [facility] Platelet 276 135 - 371 x10(3)/mc L [facility] Mean Platelet Volume 9.5 9.3 - 12.8 fL [facility] Nucleated RBC 0 0 - 0 /100 WBC [facility] Nucleated RBC Abs 0.00 0.00 - 0.00 x10(3)/mc L [facility] Comment:This test was perfor med at: [facility],CLIA# [id number],Noman Reed M.D., Communication Skills Instructor,[address] [place] [address],[facility] [place] Blood 10/13/2022 5:21 AM IMPROVEMENT INTERN 10/13/2022 6:09 AM IMPROVEMENT INTERN Rosa Garcia NEWSPAPER PHOTOJOURNALIST LAB BLOOD OR DERABLES [facility] [address] [address], [place] [phone] * (ABNORMAL) BMP (10/13/2022 5:21 AM IMPROVEMENT INTERN) Only the most recent of4 resultswithin the time period is included. Sodium Level 138 136 - 145 mmol/L [facility] Potassium Level 3.8 3.3 - 4.8 mmol/L [facility] Chloride Level 108(H) 98 - 107 mmol/L [facility] Carbon Dioxide 23 22 - 29 mmol/L [facility] Glucose Level 89 70 - 99 mg/dL [facility] Blood Urea Nitrogen 20 8 - 26 mg/dL [facility] Creatinine Level 0.68 0.57 - 1.11 mg/dL [facility] Calcium Level Total 8.9 8.4 - 10.5 mg/dL [facility] Anion Gap 7 [facility] Comment:This test was perfor med at: [facility],IA# [id number],Noman Reed M.D., Communication Skills Instructor,[address] [place] [address],[address] [place] [address] Blood 10/13/2022 5:21 AM IMPROVEMENT INTERN 10/13/2022 6:08 AM IMPROVEMENT INTERN Rosa Garcia NEWSPAPER PHOTOJOURNALIST LAB BLOOD OR DERABLES [facility] [address] [address], * EKG 12 lead (10/12/2022 12:47 AM IMPROVEMENT INTERN) Heart Rate 70 bpm [facility] RR INTERVAL 852 ms [facility] ECG ATRIAL RATE 70 ms [facility] ECG MI Interval 239 ms [facility] ECG P DURATION 167 ms [facility] ECG P HORIZONTAL AXIS 0 deg [facility] ECG Frontal Brilliant P 56 degrees [facility] ECG Q ONSET 501 ms [facility] ECG QRS Duration 101 msec [facility] ECG QT Interval 419 msec [facility] ECG QTcB 454 msec [facility] ECG QTcF 442 ms [facility] ECG QRS HORIZONTAL AXIS 47 deg [facility] ECG Frontal Brilliant Mean QRS 90 degrees [facility] ECG HORIZONTAL AXIS: INITIAL 40 MS 16 deg [facility] ECG Frontal Brilliant Initial 40 ms 81 degrees [facility] ECG HORIZONTAL AXIS: TERMINAL 40 MS Invalid deg [facility] ECG Frontal Brilliant Terminal 40 ms Invalid degrees [facility] ECG T HORIZONTAL AXIS 6 deg [facility] ECG T Wave Brilliant 21 deg [facility] ECG S-T HORIZONTAL AXIS 9 deg [facility] ECG Frontal Brilliant ST 0 degrees [facility] ECG ECG Severity T - ABNORMAL ECG - [facility] ECG ECG Impression Sinus rhythm [facility] ECG ECG Impression Prolonged MI interval [facility] ECG ECG Impression Consider right ventricular hypertrophy [facility] ECG ECG Impression No prior tracing available [facility] ECG 10/12/2022 12:4 7 AM IMPROVEMENT INTERN Rosa Garcia NEWSPAPER PHOTOJOURNALIST ECG ORDERABL ES [facility] [place] [address], * Phosphorus Lvl (10/11/2022 11:10 PM IMPROVEMENT INTERN) Phosphorus Level 3.4 2.3 - 4.7 mg/dL [facility] Comment:This test was perfor med at: [facility],CLIA# [id number],Noman Reed M.D., Communication Skills Instructor,[address] [place] [address],[facility] [place] Blood 10/11/2022 11:1 0 PM IMPROVEMENT INTERN 10/11/2022 11:18 PM IMPROVEMENT INTERN Rosa Garcia NEWSPAPER PHOTOJOURNALIST LAB BLOOD OR DERABLES [facility] [address] [address], * Magnesium Lvl (10/11/2022 11:10 PM IMPROVEMENT INTERN) Magnesium Level 1.6 1.6 - 2.6 mg/dL [facility] Comment:This test was perfor med at: [facility],IA# [id number],Noman Reed M.D., Communication Skills Instructor,[address] [place] [address] Blood 10/11/2022 11:1 0 PM IMPROVEMENT INTERN 10/11/2022 11:18 PM IMPROVEMENT INTERN Rosa Garcia NEWSPAPER PHOTOJOURNALIST LAB BLOOD OR DERABLES [facility] [address] [address], * Folate Lvl (10/11/2022 11:10 PM IMPROVEMENT INTERN) Folate Level 12.1 5.9 - 24.8 ng/mL [facility] Comment: Interpretation: ? Deficiency ?(<3.9) ?ng/mL ? Intermediate ? (4.0 - 5.8) ??ng/mL ?Sufficient ? (>/= 5.9) ?ng/mLThis test was performed at: [facility],CLIA# [id number],Noman Reed M.D., Communication Skills Instructor,[address] [place] [address] Blood 10/11/2022 11:1 0 PM IMPROVEMENT INTERN 10/11/2022 11:18 PM IMPROVEMENT INTERN Rosa Garcia NEWSPAPER PHOTOJOURNALIST LAB BLOOD OR DERABLES [facility] [address] [address], [place] [phone] * Vitamin B12 Lvl (10/11/2022 11:10 PM IMPROVEMENT INTERN) Vitamin B12 Level 451 213 - 816 pg/mL [facility] Comment:This test was perfor med at: [facility],CLIA# [id number],Noman Reed M.D., Communication Skills Instructor,[address] [place] [address] Blood 10/11/2022 11:1 0 PM IMPROVEMENT INTERN 10/11/2022 11:18 PM IMPROVEMENT INTERN Rosa Garcia NEWSPAPER PHOTOJOURNALIST LAB BLOOD OR DERABLES Performing Organization Address City/[facility]/ZIP Co de Phone Number [facility] [address] [address], [place] [phone] * (ABNORMAL) Auto Diff (10/11/2022 10:18 PM IMPROVEMENT INTERN) Neutrophils 70.8 % [facility] Comment: Per CAP, reference ranges should not be reported for percent cell counts when reporting reference ranges for absolute number counts to prevent misinterpretation of WBC differential data. Absolute Neutrophils 4.42 1.60 - 8.10 x10(3)/mcL [facility] Lymphs 21.5 % [facility] Comment: Per CAP, reference ranges should not be reported for percent cell counts when reporting reference ranges for absolute number counts to prevent misinterpretation of WBC differential data. Absolute Lymphocytes 1.34 1.10 - 3.50 x10(3)/[facility] Monocytes 4.0 % [facility] Comment: Per CAP, reference ranges should not be reported for percent cell counts when reporting reference ranges for absolute number counts to prevent misinterpretation of WBC differential data. Absolute Monocytes 0.25(L) 0.30 - 1.10 x10(3)/[facility] Eosinophils 2.7 % [facility]ER NER [facility] Comment: Per CAP, reference ranges should not be reported for percent cell counts when reporting reference ranges for absolute number counts to prevent misinterpretation of WBC differential data. Absolute Eosinophils 0.17 0.00 - 0.50 x10(3)/[facility] Basophils 0.5 % [facility] Comment: Per CAP, reference ranges should not be reported for percent cell counts when reporting reference ranges for absolute number counts to prevent misinterpretation of WBC differential data. Absolute Basophils 0.03 0.01 - 0.08 x10(3)/[facility] Imm Gran Automated 0.5 % [facility] Absolute Imm Gran Automated 0.03 0.00 - 0.03 x10(3)/[facility] Comment:This test was perfor med at: [facility]# [id number],Noman Reed M.D., Communication Skills Instructor,[address] [place] [address],[address] [place] [address] Blood 10/11/2022 10:1 8 PM IMPROVEMENT INTERN 10/11/2022 10:28 PM IMPROVEMENT INTERN Sumeet Neves MD LAB BLOOD ORDERABLES [facility] [address] [address], * SARS-CoV-2 PCR (10/11/2022 10:18 PM IMPROVEMENT INTERN) Pathologist [facility] SARS-CoV-2 Nucleic Acid (Result) Not Detected Not Detected [facility] Comment: A detected result is positive and indicates the presence of the virus in the sample. A not detected result indicates that the test did not detect the virus in the sample. Results are generated using nucleic acid amplification tests that are labeled Emergency Use Only by the [place] FDA. SARS-CoV-2 Nucleic Acid (Specimen Type) Nasopharynx [facility] SARS-CoV-2 Nucleic Acid Method (Comment) This COVID-19 test was performed under FDA Emergency Use Authorization. [facility] Comment:This test was perfor med at: [facility],CLIA# [id number],Noman Reed M.D., Communication Skills Instructor,[address] [place] [address],[address] [place] [address] Nasopharynx 10/11/2022 10:1 8 PM IMPROVEMENT INTERN 10/11/2022 10:27 PM IMPROVEMENT INTERN Narrative Resulting Agency Comment Reason for testing:->Screening of asymptomatic patient Reason for screening:->Asymptomatic admission to [facility] If you choose this option, the patient will not be placed into isolation precautions and this indication will be monitored.->I acknowledge that the patient will not be placed into isolation precautions and that use of this indication will be monitored Nurse Instructions:->Please obtain nares, PROCESS CONTROLS TECHNICIAN, or OP swab, place in viral transport media, and DO NOT place a dot on the sample. Sumeet Neves MD LAB BODY FLUIDS AND STOOLS ORDERABLES [facility] [address] [address], * CBC w/ Differential (10/11/2022 10:18 PM IMPROVEMENT INTERN) White Blood Cells 6.2 3.9 - 10.7 x10(3)/[facility] Red Blood Cells 4.44 4.00 - 5.50 x10(6)/[facility]L [facility] Hemoglobin 12.6 11.8 - 16.0 gm/dL [facility] Hematocrit 38 36 - 43 % [facility] Mean Cell Volume 86 81 - 98 fL [facility] Mean Cell Hemoglobin 28.4 27.0 - 32.0 pg [facility] Mean Cell Hemoglobin Concentration 33.1 31.0 - 35.0 gm/dL [facility] RDW SD 40.8 37.4 - 52.4 fL [facility] RDW CV 12.9 11.1 - 14.3 % [facility] Platelet 316 135 - 371 x10(3)/mcL [facility] Mean Platelet Volume 9.3 9.3 - 12.8 fL [facility] Nucleated RBC 0 0 - 0 /100 WBC [facility] Nucleated RBC Abs 0.00 0.00 - 0.00 x10(3)/mcL [facility] Auto Neutrophil Absolute 4.42 1.60 - 8.10 x10(3)/[facility] Blood 10/11/2022 10:1 8 PM IMPROVEMENT INTERN 10/11/2022 10:28 PM IMPROVEMENT INTERN Sumeet Neves MD LAB BLOOD ORDERABLES [facility] [address] [address], * XR C-Spine AP, lateral, flex, ext (10/11/2022 8:48 PM IMPROVEMENT INTERN) Anatomical Region Laterality Modality C-spine Digital Radiogra phy 10/11/2022 8:53 PM IMPROVEMENT INTERN Impressions 10/11/2022 8:53 PM IMPROVEMENT INTERN 1. No acute osseous findings. 2. Severe multilevel disc degeneration ws:[id number] Electronically Signed By SALOMON MENESES on 2022-10-11 20:53 CTZ Referring providers may call my direct line Narrative 10/11/2022 8:53 PM IMPROVEMENT INTERN PROCEDURE: CERVICAL SPINE, 4 VIEWS FLEXION AND EXTENSION TECHNIQUE: ??Cervical spine radiographs, minimum of four views, including AP, lateral, open-mouth odontoid and flexion and extension views. CPT 03111 HISTORY: ??Arm Pain; Osteoarthritis of spine with radiculopathy, cervical region; Right arm pain; Not Applicable COMPARISONS: None. FINDINGS: Prevertebral soft tissues: Normal. Alignment in neutral position: Normal. Vertebral movement with flexion and extension: ??Physiologic. Vertebral body height: ??Normal. Disk spaces: Severe disc narrowing throughout the cervical spine with moderate sized ventral spurs. Fracture(s): None. Facets: Mild multilevel facet arthrosis bilaterally throughout the cervical spine. Bone mineralization: Mild osteopenia. Procedure Note Salomon Meneses MD - 10/11/2022 PROCEDURE: CERVICAL SPINE, 4 VIEWS FLEXION AND EXTENSION TECHNIQUE: Cervical spine radiographs, minimum of four views, including AP, lateral, open-mouth odontoid and flexion and extension views. CPT 75662 HISTORY: Arm Pain; Osteoarthritis of spine with radiculopathy, cervical region; Right arm pain; Not Applicable COMPARISONS: None. FINDINGS: Prevertebral soft tissues: Normal. Alignment in neutral position: Normal. Vertebral movement with flexion and extension: Physiologic. Vertebral body height: Normal. Disk spaces: Severe disc narrowing throughout the cervical spine with moderate sized ventral spurs. Fracture(s): None. Facets: Mild multilevel facet arthrosis bilaterally throughout the cervical spine. Bone mineralization: Mild osteopenia. IMPRESSION: 1. No acute osseous findings. 2. Severe multilevel disc degeneration ws:[id number] Electronically Signed By SALOMON MENESES on 2022-10-11 20:53 CTZ Referring providers may call my direct line Sumeet Neves MD IMG XR PROCEDURES * X-ray thoracic spine 2 views (10/11/2022 8:48 PM IMPROVEMENT INTERN) Anatomical Region Laterality Modality Spine, T-spine Digital Radiogra phy 10/11/2022 8:54 PM IMPROVEMENT INTERN Impressions 10/11/2022 8:53 PM IMPROVEMENT INTERN 1. No acute osseous findings. 2. Mild scoliosis. ws:[id number] Electronically Signed By SALOMON MENESES on 2022-10-11 20:54 CTZ Referring providers may call my direct line Narrative 10/11/2022 8:53 PM IMPROVEMENT INTERN PROCEDURE: THORACIC SPINE, 2 VIEWS TECHNIQUE: ??Thoracic spine radiographs, including AP and lateral projections. CPT 55804 HISTORY: Arm Pain; Osteoarthritis of spine with radiculopathy, cervical region; Right arm pain; Not Applicable. COMPARISONS: None. FINDINGS: Alignment: ??Mild RIGHT convexity scoliosis centered at T8-T9. Vertebral body height: Normal. Disk spaces: ??Normal. Fracture(s): ??None. Bone mineralization: ??Normal. Procedure Note Salomon Meneses MD - 10/11/2022 PROCEDURE: THORACIC SPINE, 2 VIEWS TECHNIQUE: Thoracic spine radiographs, including AP and lateral projections. CPT 69684 HISTORY: Arm Pain; Osteoarthritis of spine with radiculopathy, cervical region; Right arm pain; Not Applicable. COMPARISONS: None. FINDINGS: Alignment: Mild RIGHT convexity scoliosis centered at T8-T9. Vertebral body height: Normal. Disk spaces: Normal. Fracture(s): None. Bone mineralization: Normal. IMPRESSION: 1. No acute osseous findings. 2. Mild scoliosis. ws:[id number] Electronically Signed By SALOMON MENESES on 2022-10-11 20:54 CTZ Referring providers may call my direct line Sumeet Neves MD IMG XR PROCEDURES * MRI thoracic spine without contrast (10/11/2022 6:20 PM IMPROVEMENT INTERN) Anatomical Region Laterality Modality Spine, T-spine Magnetic Resonan ce 10/11/2022 7:12 PM IMPROVEMENT INTERN Impressions 10/11/2022 6:56 PM IMPROVEMENT INTERN 1. Findings which is for mild acute on chronic T12 compression fracture. No retropulsion. 2. No significant central canal or foraminal stenosis. 3. Small LEFT renal cyst. 4. Mild scoliosis centered at T12. ws:[id number] Electronically Signed By SALOMON MENESES on 2022-10-11 19:12 CTZ Referring providers may call my direct line Narrative 10/11/2022 6:56 PM IMPROVEMENT INTERN PROCEDURE: MRI THORACIC SPINE WITHOUT CONTRAST TECHNIQUE: Magnetic resonance imaging of the thoracic spine was performed using standard pulse sequences without contrast material. CPT 86498 HISTORY: Arm Pain; Mid-back pain COMPARISONS: None. FINDINGS: Overall straightening of the thoracic lordosis. There is mild LEFT convexity rotoscoliosis centered at T12. There is moderate of the T12 vertebral body with a small amount of edema along the superior endplate and vertebral body which could reflect acute on chronic fracture. Mild deformity of the superior endplate of T8, chronic. A rounded lesion displaying hyperintensity on T2 and isointense T1 signal may reflect a lipid poor hemangioma. The spinal cord is unremarkable. LEFT renal midpole cyst measures 8 x 8 mm. Diffuse disc bulge with endplate spurring is demonstrated at T11-T12 creating mild stenosis. Mild to moderate bilateral foraminal stenosis at T11-T12 due to facet arthrosis. Procedure Note Salomon Meneses MD - 10/11/2022 PROCEDURE: MRI THORACIC SPINE WITHOUT CONTRAST TECHNIQUE: Magnetic resonance imaging of the thoracic spine was performed using standard pulse sequences without contrast material. CPT 11901 HISTORY: Arm Pain; Mid-back pain COMPARISONS: None. FINDINGS: Overall straightening of the thoracic lordosis. There is mild LEFT convexity rotoscoliosis centered at T12. There is moderate of the T12 vertebral body with a small amount of edema along the superior endplate and vertebral body which could reflect acute on chronic fracture. Mild deformity of the superior endplate of T8, chronic. A rounded lesion displaying hyperintensity on T2 and isointense T1 signal may reflect a lipid poor hemangioma. The spinal cord is unremarkable. LEFT renal midpole cyst measures 8 x 8 mm. Diffuse disc bulge with endplate spurring is demonstrated at T11-T12 creating mild stenosis. Mild to moderate bilateral foraminal stenosis at T11-T12 due to facet arthrosis. IMPRESSION: 1. Findings which is for mild acute on chronic T12 compression fracture. No retropulsion. 2. No significant central canal or foraminal stenosis. 3. Small LEFT renal cyst. 4. Mild scoliosis centered at T12. ws:[id number] Electronically Signed By SALOMON MENESES on 2022-10-11 19:12 CTZ Referring providers may call my direct line Sumeet Neves MD IMG MRI PROCEDURES * MRI cervical spine without contrast (10/11/2022 5:51 PM IMPROVEMENT INTERN) Anatomical Region Laterality Modality Spine, C-spine Magnetic Resonan ce 10/11/2022 6:55 PM IMPROVEMENT INTERN Impressions 10/11/2022 6:51 PM IMPROVEMENT INTERN 1. Moderate to severe multilevel degenerative changes throughout the cervical spine with stenosis most significant at C3-C4, C4-C5, C5-C6 and C6-C7. 2. Heterogeneous nodule arising from the LEFT inferior thyroid lobe. Recommend nonemergent ultrasound for further evaluation. ws:[id number] Electronically Signed By SALOMON MENESES on 2022-10-11 18:55 CTZ Referring providers may call my direct line Narrative 10/11/2022 6:51 PM IMPROVEMENT INTERN PROCEDURE: MRI CERVICAL SPINE WITHOUT CONTRAST TECHNIQUE: Magnetic resonance imaging of the cervical spine was performed using standard pulse sequences without contrast material. CPT 96326 HISTORY: Arm Pain; Neck pain, chronic COMPARISONS: None. FINDINGS: Straightening of the cervical lordosis. Vertebral body heights are normal. Mildly heterogeneous marrow signal. The craniocervical junction is normal. The spinal cord displays normal signal throughout its course. The soft tissues of the neck are notable for a heterogeneous nodule arising from the LEFT inferior thyroid pole cysts measuring 2.0 x 1.8 x 1.8 cm. C2-C3: Severe degeneration of the disc. Diffuse disc bulge creates mild central stenosis. No foraminal stenosis. Normal facets. C3-C4: Severe degeneration of disks with endplate spurring. Moderate central canal stenosis with endplate spurring resulting in flattening the ventral cord. No foraminal stenosis. C4-C5: Severe degeneration of the disc with desiccation and loss of height. Endplate spurring leads to moderate central canal stenosis. Moderate to severe bilateral foraminal stenosis due to uncinate spurring. C5-C6: Moderate degeneration of disks with desiccation and loss of height. Diffuse disc bulge creates mild central stenosis. Severe RIGHT and moderate LEFT foraminal stenosis due to uncinate spurring. C6-C7: Moderate degeneration of disks with desiccation and loss of height. Diffuse bulge creates mild central stenosis. Moderate bilateral foraminal stenosis due to uncinate spurring. C7-T1: No central canal or foraminal stenosis. Procedure Note Salomon Meneses MD - 10/11/2022 PROCEDURE: MRI CERVICAL SPINE WITHOUT CONTRAST TECHNIQUE: Magnetic resonance imaging of the cervical spine was performed using standard pulse sequences without contrast material. CPT 37883 HISTORY: Arm Pain; Neck pain, chronic COMPARISONS: None. FINDINGS: Straightening of the cervical lordosis. Vertebral body heights are normal. Mildly heterogeneous marrow signal. The craniocervical junction is normal. The spinal cord displays normal signal throughout its course. The soft tissues of the neck are notable for a heterogeneous nodule arising from the LEFT inferior thyroid pole cysts measuring 2.0 x 1.8 x 1.8 cm. C2-C3: Severe degeneration of the disc. Diffuse disc bulge creates mild central stenosis. No foraminal stenosis. Normal facets. C3-C4: Severe degeneration of disks with endplate spurring. Moderate central canal stenosis with endplate spurring resulting in flattening the ventral cord. No foraminal stenosis. C4-C5: Severe degeneration of the disc with desiccation and loss of height. Endplate spurring leads to moderate central canal stenosis. Moderate to severe bilateral foraminal stenosis due to uncinate spurring. C5-C6: Moderate degeneration of disks with desiccation and loss of height. Diffuse disc bulge creates mild central stenosis. Severe RIGHT and moderate LEFT foraminal stenosis due to uncinate spurring. C6-C7: Moderate degeneration of disks with desiccation and loss of height. Diffuse bulge creates mild central stenosis. Moderate bilateral foraminal stenosis due to uncinate spurring. C7-T1: No central canal or foraminal stenosis. IMPRESSION: 1. Moderate to severe multilevel degenerative changes throughout the cervical spine with stenosis most significant at C3-C4, C4-C5, C5-C6 and C6-C7. 2. Heterogeneous nodule arising from the LEFT inferior thyroid lobe. Recommend nonemergent ultrasound for further evaluation. [id number] Electronically Signed By SALOMON MENESES on 2022-10-11 18:55 CTZ Referring providers may call my direct line Sumeet Neves MD IMG MRI PROCEDURES documented in this encounter Visit Diagnoses Diagnosis Osteoarthritis of spine with radiculopathy, cervical region- Primary Osteoarthritis of spine with radiculopathy, cervical region Right arm pain Compression fracture of T12 vertebra with routine healing Intractable pain documented in this encounter Admitting Diagnoses Diagnosis Osteoarthritis of spine with radiculopathy, cervical region documented in this encounter Administered Medications Inactive Administered Medications - up to 3 most recent administrations Medication Order MAR Action Action Date Dose Rate Site acetaminophen (TYLENOL EXTRA STRENGTH) tablet 1,000 mg 1,000 mg, oral, Once, On 10/11/22 at 1630, For 1 dose Given 10/11/2022 7:37 PM IMPROVEMENT INTERN 1,000 mg dexamethasone (DECADRON) 4 mg/mL injection 8 mg 8 mg, intraVENOUS, Once, On 10/11/22 at 2015, For 1 dose, Given 10/11/2022 8:55 PM IMPROVEMENT INTERN 8 mg gabapentin (NEURONTIN) capsule 300 mg 300 mg, oral, Once, On 10/11/22 at 1945, For 1 dose Given 10/11/2022 7:58 PM IMPROVEMENT INTERN 300 mg gabapentin (NEURONTIN) capsule 300 mg 300 mg, oral, 3 times daily, First dose on 10/12/22 at 0300 Given 10/13/2022 1:44 PM IMPROVEMENT INTERN 300 mg Given 10/13/2022 5:14 AM IMPROVEMENT INTERN 300 mg Given 10/12/2022 9:18 PM IMPROVEMENT INTERN 300 mg HYDROcodone-acetaminophen (NORCO) 5-325 mg per tablet 1 tablet 1 tablet, oral, Every 4 hours PRN, moderate pain (4-7 /10), severe pain (8-10 /10), Starting on 10/12/22 at 1436, DO NOT TUBE-MUST ALWAYS BE SECURED Given 10/13/2022 1:44 PM IMPROVEMENT INTERN 1 tablet Given 10/13/2022 9:42 AM IMPROVEMENT INTERN 1 tablet Given 10/13/2022 5:14 AM IMPROVEMENT INTERN 1 tablet HYDROmorphone (PF) (DILAUDID) injection 0.5 mg 0.5 mg, intraVENOUS, Once, On 10/11/22 at 2115, For 1 dose, MUST BE GIVEN SLOWLY OVER 2-3 MINUTES. Given 10/11/2022 9:07 PM IMPROVEMENT INTERN 0.5 mg HYDROmorphone (PF) (DILAUDID) injection 0.5 mg 0.5 mg, intraVENOUS, Every 6 hours PRN, moderate pain (4-7 /10), severe pain (8-10 /10), Starting on 10/12/22 at 0000, MUST BE GIVEN SLOWLY OVER 2-3 MINUTES. Given 10/12/2022 9:01 AM IMPROVEMENT INTERN 0.5 mg Back HYDROmorphone (PF) (DILAUDID) injection 0.5 mg 0.5 mg, intraVENOUS, Every 6 hours PRN, severe pain (8-10 /10), Starting on 10/13/22 at 0816, MUST BE GIVEN SLOWLY OVER 2-3 MINUTES. ketorolac (TORADOL) injection 15 mg 15 mg, intraVENOUS, Once, On 10/11/22 at 1630, For 1 dose Given 10/11/2022 7:37 PM IMPROVEMENT INTERN 15 mg ketorolac (TORADOL) injection 15 mg 15 mg, intraVENOUS, Once, On 10/12/22 at 0230, For 1 dose Given 10/12/2022 2:36 AM IMPROVEMENT INTERN 15 mg oxyCODONE (ROXICODONE) immediate release tablet 5 mg 5 mg, oral, Once, On 10/11/22 at 1945, For 1 dose, DO NOT TUBE-MUST ALWAYS BE SECURED Given 10/11/2022 7:58 PM IMPROVEMENT INTERN 5 mg traMADoL (ULTRAM) tablet 50 mg 50 mg, oral, Once, On 10/11/22 at 2200, For 1 dose, DO NOT TUBE-MUST ALWAYS BE SECURED Given 10/11/2022 10:10 PM IMPROVEMENT INTERN 50 mg documented in this encounter Active and Recently Administered Medications Times are shown in IMPROVEMENT INTERN. Scheduled Medication Order 10/11/2022 10/12/2022 10/13/2022 acetaminophen (TYLENOL EXTRA STRENGTH) tablet 1,000 mg (COMPLETED) 1,000 mg, oral, Once, On 10/11/22 at 1630, For 1 dose 1936 (Given - Provider: Danish Garcia, FRANCHESCA) dexamethasone (DECADRON) 4 mg/mL injection 8 mg (COMPLETED) 8 mg, intraVENOUS, Once, On 10/11/22 at 2014, For 1 dose, 2054 (Given - Provider: Angle Diehl, FRANCHESCA) gabapentin (NEURONTIN) capsule 300 mg (COMPLETED) 300 mg, oral, Once, On 10/11/22 at 1945, For 1 dose 1957 (Given - Provider: Danish Garcia, FRANCHESCA) gabapentin (NEURONTIN) capsule 300 mg 300 mg, oral, 3 times daily, First dose on 10/12/22 at 0300 0236 (Given - Provider: Gerri Coreas LPN)1314 (Given - Provider: Angela Nina LPN)2118 (Given - Provider: Irma Redd LPN) 0514 (Given - Provider: Irma Redd LPN)1344 (Given - Provider: Luisa Marrero LPN) HYDROmorphone (PF) (DILAUDID) injection 0.5 mg (COMPLETED) 0.5 mg, intraVENOUS, Once, On 10/11/22 at 2115, For 1 dose, MUST BE GIVEN SLOWLY OVER 2-3 MINUTES. 210 (Given - Provider: Danish Garcia, FRANCHESCA) ketorolac (TORADOL) injection 15 mg (COMPLETED) 15 mg, intraVENOUS, Once, On 10/11/22 at 1630, For 1 dose 193 (Given - Provider: Danish Garcia, FRANCHESCA) ketorolac (TORADOL) injection 15 mg (COMPLETED) 15 mg, intraVENOUS, Once, On 10/12/22 at 0230, For 1 dose 0236 (Given - Provider: Jeana Lagunas RN) oxyCODONE (ROXICODONE) immediate release tablet 5 mg (COMPLETED) 5 mg, oral, Once, On 10/11/22 at 1945, For 1 dose, DO NOT TUBE-MUST ALWAYS BE SECURED 1958 (Given - Provider: Danish Garcia, FRANCHESCA) traMADoL (ULTRAM) tablet 50 mg (COMPLETED) 50 mg, oral, Once, On 10/11/22 at 2200, For 1 dose, DO NOT TUBE-MUST ALWAYS BE SECURED 2210 (Given - Provider: Angle Diehl RN) PRN Medication Order 10/11/2022 10/12/2022 10/13/2022 acetaminophen (TYLENOL) tablet 650 mg 650 mg, oral, Every 6 hours PRN, mild pain (1-3 /10), Starting on 10/11/22 at 2303, Do not exceed 4 grams acetaminophen per day HYDROcodone-acetaminophen (NORCO) 5-325 mg per tablet 1 tablet 1 tablet, oral, Every 4 hours PRN, moderate pain (4-7 /10), severe pain (8-10 /10), Starting on 10/12/22 at 1436, DO NOT TUBE-MUST ALWAYS BE SECURED 1507 (Given - Provider: Angela Nina LPN)2118 (Given - Provider: Irma Redd LPN) 0112 (Given - Provider: Irma Redd LPN)0514 (Given - Provider: Irma Redd LPN)0942 (Given - Provider: Luisa Marrero LPN)1344 (Given - Provider: Luisa Marrero LPN) HYDROmorphone (PF) (DILAUDID) injection 0.5 mg (CANCELED) 0.5 mg, intraVENOUS, Every 6 hours PRN, moderate pain (4-7 /10), severe pain (8-10 /10), Starting on 10/12/22 at 0000, MUST BE GIVEN SLOWLY OVER 2-3 MINUTES. 0901 (Given - Provider: Angela Nina LPN) HYDROmorphone (PF) (DILAUDID) injection 0.5 mg 0.5 mg, intraVENOUS, Every 6 hours PRN, severe pain (8-10 /10), Starting on 10/13/22 at 0816, MUST BE GIVEN SLOWLY OVER 2-3 MINUTES. 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
--- OUTSIDE RECORDS SUMMARY | 2024-04-24 10:22 | XMS_ITS ---
Author Organization [facility] Address [address] [place] [address] Care Team Providers Care Science Center Display Builder Name Role Phone Reed [phone] Haven Unavailable REASON FOR VISIT TB Skin test placement, PPD Skin Test Medications Medication SIG (Take, Route, Frequency, Duration) Notes Start Date End Date Status Gabapentin 400 MG 1 capsule Orally 3 t imes a day Active Cyclobenzaprine HCl 10 MG 1 tablet at bedtime as needed Orally Once a day As needed Active Ibuprofen 800 MG 1 tablet with food or milk as needed Orally every 8 hrs As needed Active Diclofenac 35 MG 1 capsule as needed Orally Three times a day As needed Active Immunizations Vaccine Route Administration Date Status Comme nts PPD Aplisol ID Intradermal 07/10/2023 Administered Encounters Encounter Location Date Provider Diagnosis [address] [address] 07/10/2023 Mis Mcbride PPD screening test Z11.1 Assessments Encounter Date Diagnosis (ICD Code) Assessment Notes Treatment Notes Treatment Clinical Notes 07/10/2023 PPD screening test (ICD-10 - Z11.1) Patient reports they have never had a positive ppd reaction. Plan Of Treatment Treatment Notes Assessment Notes PPD screening test Patient reports they have never had a positive ppd reaction. Next Appt Details Follow Up: Please return to the clinic within 48-72 hours during the hours of business for [facility]. Thank you!, Reason: Progress Notes * Mignon SHETTYOB: [birth year] (52 yo F)Acc No.[id number]:07/10/2023 Progress Notes Patient:?KainAnnika sandra Provider:?Mis Mcbride APN :1970???Age:52 Y???Sex:Female D ate:07/10/2023 Address:[address] [place] [address] [address], [place], [place] Subjective: * Chief Complaints: * ???1. TB Skin test placement . 2. PPD Skin Test. * HPI: ???Constitutional:? Patient required PPD testing for work. * Medical History:? * Medications:?Taking Diclofen ac 35 MG Capsule 1 capsule as needed Orally Three times a day As needed, Taking Ibuprofen 800 MG Tablet 1 tablet with food or milk as needed Orally every 8 hrs As needed, Taking Cyclobenzaprine HCl 10 MG Tablet 1 tablet at bedtime as needed Orally Once a day As needed, Taking Gabapentin 400 MG Capsule 1 capsule Orally 3 times a day Objective: Past Vitals:* 06/11/2023 Ht: 68, Wt: 139, BMI:21.13 Assessment: * Assessment: 1.?PPD screening test - Z11. 1 (Primary)? Plan: * Treatment: * Immunizations:? PPD Aplisol : 0.1 mL (Dose No:1) (Route: Intradermal) given by Mis Mcbride APN on Right Lower Forearm (PPD screening test) * Procedure Codes:?12801 TB SK IN TEST (APLISOL) * Follow Up:?Please return to the clinic within 48-72 hours during the hours of business for [facility]. Thank you! * Billing Information: * Visit Code:? * Procedure Codes:? 77468 TB SKIN TEST (APLISOL). * Sign off status: Completed true * Provider:?Mis Mcbride APN Date:?2022 Generated for Zahira trujillo/Lay/Abhijit on:?04/24/2024 09:22 AM CDT
--- OUTSIDE RECORDS SUMMARY | 2024-04-24 10:22 | XMS_ITS ---
Author Organization [facility] Address [address] [place] [address] Care Team Providers Care Traffic Representative Name Role Phone Sariah [id number] Priscila Hamilton Allergies Allergen (clinical drug ingredient) Drug/Non Drug Allergy documented on EMR Reaction Allergy Type Onset Date Status hydrocodone HYDROcodone hives Drug Allergy Act michael REASON FOR VISIT Work (20+ yrs) Medications Medication SIG (Take, Route, Frequency, Duration) Notes Start Date End Date Status Cyclobenzaprine HCl 10 MG 1 tablet at bedtime as needed Orally Once a day As needed Active Gabapentin 400 MG 1 capsule Orally 3 t imes a day Active Ibuprofen 800 MG 1 tablet with food or milk as needed Orally every 8 hrs As needed Active Diclofenac 35 MG 1 capsule as needed Orally Three times a day As needed Active Problems Problem Type SNOMED Code ICD Code Onset Dates Problem Status W/U Status Risk Notes Problem Osteoarthritis (930511350) Unspecified osteoarthritis, unspecified site (M19.90) Active confirmed Vital Signs Height 68 in 06/11/2023 Weight 139 lbs 06/11/2023 BMI 21.13 kg/m2 06/11/2023 Encounters Encounter Location Date Provider Diagnosis [id number] [facility] [address] [place] [address] 06/11/2023 Priscila Rolle Physical exam Z00.00 Assessments Encounter Date Diagnosis (ICD Code) Assessment Notes Treatment Notes Treatment Clinical Notes 06/11/2023 Physical exam (ICD-10 - Z00.00) Review with the patient or business development representative any required lab work, forms, or reporting requirements for physical. Order any necessary outside lab work and complete the required forms or documentation, scan and return to the patient. Plan Of Treatment Next Appt Details Follow Up: PRN, Reason: Progress Notes * Mignon SHETTYOB: [birth year] (52 yo F)Acc No.[id number]:06/11/2023 Progress Note Patient:?Annika Shetty Provider:?Priscila Rolle PA-C :1970???Age:52 Y???Sex:Female D ate:06/11/2023 External Visit ID:[id number] Address:[address] [place] [address] [place], [place] [id number] Subjective: * Chief Complaints: * ???1. Work (20+ yrs). * HPI: ???Constitutional:? Patient presents for a Life Event Physical. 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 Now seeking to decrease need to travel in her new job. * Medical History:?Spinal sten osis, Unspecified osteoarthritis, unspecified site. * Surgical History:?Bilateral tubal ligation 22 years ago. * Medications:?Taking Diclofen ac 35 MG Capsule [...] 1 capsule Orally 3 times a day , Medication List reviewed and reconciled with the patient * Allergies:?HYDROcodone: hive s - Criticality Unknown. Objective: * Vitals:?Ht: 68, Wt: 139, BMI :21.13. * Examination: ???Focused Exam: ?MS:?both wrists- round soft nodules mobile on both wrists and? right elbow.?Possible ganglion cyst on wrists- Full range of motion on wrist and elbow, strenght 5/5. ?Spine- no decreased range of motion- able to flex touching her feet..?See Scanned Form. Assessment: * Assessment: 1.?Physical exam - Z00.00 (P rimary)? Plan: * Treatment: * Procedure Codes:?LIF69 LIFE EVENT PHYSICAL (All Ages) * Follow Up:?PRN * Billing Information: * Visit Code:? * Procedure Codes:? LIF69 LIFE EVENT PHYSICAL (All Ages). * Sign off status: Completed true * Provider:?Priscila Rolle PA-C Date:?06/11 Generated for Zahira trujillo/Lay/eTjoseitting on:?04/24/2024 09:22 AM CDT History and Physical Notes * Examination Category Sub-Category Detail Notes Focused Exam MS: both wrists- rou nd soft nodules mobile on both wrists and right elbow. Possible ganglion cyst on wrists- Full range of motion on wrist and elbow, strenght 5/5. Spine- no decreased range of motion- able to flex touching her feet.
--- OUTSIDE RECORDS SUMMARY | 2024-04-24 10:22 | XMS_ITS | Clinical Summary ---
Author Organization [facility] Address [address] [place] [address] SHAHBAZ Soto [address] Care Team Providers Care Roadway Engineer Name Role Phone Pcp, No Primary Care Provider Unavailabl e Allergies Active Allergy Reactions Criticality Noted Date Comments Oxycodone-Acetaminophen Hives (only) Low 10/11/2022 Hydrocodone-Acetaminophen Hives (only) Low 10/11/19 Medications Medication Sig Dispensed Refills Start Date End Date Status diclofenac sodium 50 mg tablet,delayed release (VOLTAREN) Take 1 tablet (50 mg total) by mouth 3 times a day. 10/04/22 #20. Pt confirmed she take it PRN for pain and inflammation 10/04/2022 Active ibuprofen 800 mg tablet (ADVIL,MOTRIN) Take 1 tablet (800 mg total) by mouth as needed for mild pain. Active gabapentin 400 mg capsule (NEURONTIN) Take 1 capsule (400 mg total) by mouth 3 times a day as needed (nerve pain) for up to 5 days. 15 capsule 10/13/2022 Active predniSONE 20 mg tablet (DELTASONE) Take 2 tablets (40 mg total) by mouth daily for 5 days, THEN 1 tablet (20 mg total) daily for 3 days, THEN 0.5 tablets (10 mg total) daily for 4 days. 15 tablet 10/13/2022 Active cyclobenzaprine 5 mg tablet (FLEXERIL) Take 1 tablet (5 mg total) by mouth 3 times a day as needed for muscle spasms for up to 10 days. 30 tablet 10/13/2022 Active gabapentin 400 mg capsule (NEURONTIN)Indicat ions:Cervical spinal stenosis,Radiculop athy of cervical spine Take 1 capsule (400 mg total) by mouth 3 times a day. 90 capsule 10/15/2022 Active cyclobenzaprine 10 mg tablet (FLEXERIL)Indicati ons:Radiculopathy of cervical spine Take 1 tablet (10 mg total) by mouth every night as needed for muscle spasms for up to 20 days. 20 tablet 10/15/2022 Active Active Problems Problem Noted Date Diagnosed Date Compression fracture of T12 vertebra with routin e healing 10/13/2022 Intractable pain 10/13/2022 Osteoarthritis of spine with radiculopathy, cerv ical region 10/11/2022 Social History Tobacco Use Types Packs/Day Years [...] on file Sexual Orientation Not on file Last Filed Vital Signs Vital Sign Reading Time Taken Comments Blood Pressure 156/91 10/13/2022 12:00 PM SPECTROGRAPH OPERATOR Pulse 63 10/13/2022 12:00 PM SPECTROGRAPH OPERATOR Temperature 36.5 ??C (97.7 ??F) 10/13/2022 12:[address] Respiratory Rate 18 10/13/2022 12:00 PM SPECTROGRAPH OPERATOR Oxygen Saturation 100% 10/13/2022 12:00 PM SPECTROGRAPH OPERATOR Inhaled Oxygen Concentration - - Weight 68 kg (150 lb) 10/11/2022 4:24 PM SPECTROGRAPH OPERATOR Height 177.8 cm (5' 10) 10/11/2022 11:23 PM SPECTROGRAPH OPERATOR Body Mass Index 21.52 10/11/2022 4:24 PM SPECTROGRAPH OPERATOR Plan of Treatment Health Maintenance Due Date Last Done Comments HIV Screening 1970 Hepatitis B Vaccines (1 of 3 - 19+ 3-dose series) 1987 Hepatitis C Screening 1987 Pap Smear 1989 DTaP,Tdap,and Td Vaccines (1 - Tdap) 1993 Cervical Cancer Screening 1998 Pap + HPV 1998 BCS: Mammogram Bilateral 2008 CRCS: Colonoscopy 2013 Zoster Vaccine (1 of 2) 2018 COVID-19 Vaccine ( - 2022-2 4 season) 2023 Influenza Vaccine (#1) 2024 HIB Vaccines Aged Out No longer eligi ble based on patient's age to complete this topic Meningococcal ACWY Vaccine Aged Out N o longer eligible based on patient's age to complete this topic Pneumococcal: Pediatric (0-5 yrs) and At-Risk Patients (6-64 yrs) Aged Out No longe r eligible based on patient's age to complete this topic Advance Directives * Full Code (Latest Code Status on File) Date Activated Date Inactivated Comments 10/12/2022 2:31 PM 10/13/2022 5:37 PM Question Answer Comments Reasons for Code Status Order: Request by Patien t/Legal Guardian Patient's Decision Making Capacity: Present Discussion of Code Status owens s Occurred with: Patient Discussion of Code Status wa s Performed by: Primary Attending Physician Care Teams Roadway Engineer Relationship Specialty Start Date End Date Pcp, Theresa PCP - General 10/11/22
--- OUTSIDE RECORDS SUMMARY | 2024-04-24 10:22 | XMS_ITS | Encounter Summary ---
Author Organization [facility] Address [facility] [place] [address] Care Team Providers Care Plate Grainer Name Role Phone Pcp, No Primary Care Provider Unavailabl e Encounter Details Date Type Department Care Team (Latest Contact Info) Description 10/11/2022 Travel Social History Tobacco Use Types Packs/Day Years [...] Coronavirus/COVID-19? No / Unsure 10/11/2022 4:23 PM VIDEOGAME DESIGNER documented as of this encounter Plan of Treatment Not on file documented as of this encounter Visit Diagnoses Not on filedocumented in this encounter Care Teams Plate Grainer Relationship Specialty Start Date End Date Pcp, No PCP - General 10/11/22 documented as of this encounter
--- OUTSIDE RECORDS SUMMARY | 2024-04-24 10:22 | XMS_ITS ---
Author Organization [facility] Address [address] [place] [address] Care Team Providers Care Fuse Cup Expander Name Role Phone Reed [id number] Haven Unavailable [phone] REASON FOR VISIT Tuberculosis (TB) / PPD Test, PPD Skin Test Read Medications Medication SIG (Take, Route, Frequency, Duration) [...] Orally 3 t imes a day Active Encounters Encounter Location Date Provider Diagnosis [address] [address] 07/12/2023 Mis Mcbride PPD screening test Z11.1 Assessments Encounter Date Diagnosis (ICD Code) Assessment Notes Treatment Notes Treatment Clinical Notes 07/12/2023 PPD screening test (ICD-10 - Z11.1) Document patient's PPD results in their immunization history and import PPD results from the right chart panel (ICW). Scan PPD result form into patient's chart. Plan Of Treatment Next Appt Details Follow Up: prn, Reason: Progress Notes * Mignon SHETTYOB: [birth year] (52 yo F)Acc No.[id number]:07/12/2023 Progress Notes Patient:Annika Sood Provider:Kim Mcbride APN :1970???Age:52 Y???Sex:Female D ate:07/12/2023 External Visit ID:[id number] Address:[address] [place] [address], [id number] Subjective: * Chief Complaints: * ???1. Tuberculosis (TB) / PP D Test. 2. PPD Skin Test Read. * HPI: ???PPD Skin Test:? Patient presents for a PPD skin test read. ?PPD Skin Test Results?Impression?Negative,?Induration?0 mm,?Date?07/12/2023.? * ROS:?CONSTITUTIONAL:?feels well?yes.? * Medical History:? * Medications:?Taking Diclofen ac [...] capsule Orally 3 times a day Objective: * Examination: ???Focused Exam: ?GENERAL:?alert and oriented x 4, no acute distress, dress appropriate for the environment & temp, well-groomed, appears well.? Assessment: * Assessment: 1.?PPD screening test - Z11. 1 (Primary)? Plan: * Treatment: * Immunizations:? PPD Aplisol (READING) Negative, Induration: 0 mm, Placement Date: 07/10/2023, Read by: Mis Mcbride on 07/12/2023 at 2:49 PM (PPD screening test) * Follow Up:?prn * Billing Information: * Visit Code:? 36569 Office Visit, Est Pt., Level 1. * Procedure Codes:? * Sign off status: Completed true * Provider:?Mis Mcbride APN Date:?2022 Generated for Zahira trujillo/Lay/eTsheila on:?04/24/2024 09:21 AM CDT History and Physical Notes * HPI (History of Present Illness) Category Sub-Category Detail Notes PPD Skin Test PPD Skin Test Results Impression: Negati ve Induration: 0 mm Date: 07/12/2023 Examination Category Sub-Category Detail Notes Focused Exam GENERAL: alert and orient ed x 4, no acute distress, dress appropriate for the environment & temp, well-groomed, appears well
--- OUTSIDE RECORDS SUMMARY | 2024-04-24 10:23 | XMS_ITS | Continuity of Care Document ---
Author Organization [facility] Address Formerly named [facility] [place] [address] Phone Support Name Relationship Address Nadia Vaz Caregiver Unknown Unavailable Care Team Providers Care Radiological Technologist Name Role Phone Cope Nadia MCGOWAN Unavailable Unavailable Allergies, Adverse Reactions, Alerts Substance Reaction Status Criticality No Known Allergies Active No Inform ation Medications Medication Instructions Dosage Effective Dates (start - stop) Status Comments prednisone 10 mg tablet take 1 tablet by oral route every day (stop diclofenac) - Active levothyroxine 25 mcg tablet take 1 tablet by oral route every day in the morning 30 minutes before eating or taking other medications - Active gabapentin 400 mg capsule take 1 capsule by oral route 3 times every day 400 MG - Active cyclobenzaprine 10 mg tablet take 1 tablet by oral route 2 times every day 10 MG - Active prednisone 10 mg tablet take 1 tablet by oral route every day (stop diclofenac) - No Longer Active prednisone 5 mg tablet take 1 tablet by oral route every day for script #2 5 MG - No Longer Active Procedures Procedure Date [facility] MED/CURRENT MED MERGE Office/outpatient visit,est, mod 2023 [facility] MED/CURRENT MED MERGE Office/outpatient visit,est, mod 2023 [facility] fngr/heel/ear stick routne [facility] MED/CURRENT MED MERGE Preventive checkup, new,40-64 yrs Advance Directives Directive Yes / No Effective Date File Name No Information Encounters Encounter Description Practice Location Reason(s) For Visit Diagnoses Date Provider Providers Copied on Encounter [facility], [address] [place] [address], [id number], tel:[phone] [place] [address] No Information 4 Cope Nadia. [address], [place], [id number] , . tel: [phone] Office/outpa tient visit,[facility], [facility], [address] [place] [address], [id number], tel:[phone] [place] [address] Arthritis (chief complaint) Phone Consult (chief complaint) Pain in jointRheumatoid arthritis 4 Cope Nadia. [address], [place], [id number] , [place]. tel: [phone] Office/outpa tient visit,[facility], [facility], [address] [place] [address], [id number], tel:[phone] [place] [address] Goiter (chief complaint) Phone Consult (chief complaint) GoiterThyroid nodule 4 Cope Nadia. [address], [place], [id number] , [place]. tel: [phone] Preventive checkup, [facility],40-64 yrs [facility], [address] [place] [address], [id number], tel:[phone] [place] [address] Arthritis (chief complaint) Body mass index [BMI] 21.0-21.9, adultEncounter for screening for malignant neoplasm of colonSpinal stenosis, cervical regionPain in jointRheumatoid arthritisEncounte r for general adult medical exam with abnormal findingScoliosisG oiterEncounter for screening for lipoid disorders 3 Cope Nadia. [address], [place], [id number] , [place]. tel: [phone] Family History Family Member Type Diagnosis Age At Onset Problem Family history of Cancer, li jazmine Cousin Problem Diabetes mellitus Father Problem Cancer, gastric Maternal aunt Problem Cancer, breast Maternal grandmother Problem Diabetes mellitus Maternal grandfather Problem Stroke Problem Family history of Diabetes m lisa Maternal grandmother Problem Cancer, gastric Problem Family history of Hypertensi on Payers Payer name Insurance type Covered libertarian ID Rodolfo kramer(s) Rika Attdonna Claims CI [id number] Social History Type Description Quantity Date Captured Comments Alcohol Use Details Unknown Caffeine Use Details Unknown Tobacco Use Status Smoking Status No Information Sex Female Sexual Orientation Straight or heterosexual Gender Identity Female Chief Complaint And Reason For Visit No Information Reason For Referral Reason For Referral No Information Plan Of Treatment Date Type Action Status Goal FIT-DNA. Due on due Goal Unhealthy drug u se screening. Due on due Goal Dental exam. Due on due Goal Tdap. Due on due Goal Breast Exam. Due on due Goal Depression scree chad. Due on due Goal Zoster vaccine ( ). Due on due Goal CT-Colonography. Due on due Goal Hepatitis C scre ening. Due on due Goal Breast MRI. Due on due Goal Influenza vaccine. Due on due Goal Td vaccine. Due on due Goal Sigmoidoscopy. Due on due Goal Mammogram. Due on due Goal Pap/HPV testing. Due on due Goal Colonoscopy. Due on due Goal HPV. Due on due Goal PAP. Due on due Goal Td vaccine. Due on due Goal Sigmoidoscopy. Due on due Goal Influenza vaccine. Due on due Goal Tdap. Due on due Goal Unhealthy drug u se screening. Due on due Goal Pap/HPV testing. Due on due Goal Hepatitis C scre ening. Due on due Goal Breast Exam. Due on due Goal Zoster vaccine ( ). Due on due Goal PAP. Due on due Goal Dental exam. Due on due Goal Breast MRI. Due on due Goal Depression scree chad. Due on due Goal Mammogram. Due on due Goal HPV. Due on due Goal FIT-DNA. Due on due Goal CT-Colonography. Due on due Goal Colonoscopy. Due on due Goal Tobacco cessation counseling completed Goal Sigmoidoscopy. Due on due Goal Breast MRI. Due on due Goal Dental exam. Due on due Goal Tdap. Due on due Goal Breast Exam. Due on due Goal Unhealthy drug u se screening. Due on due Goal Zoster vaccine ( 1st). Due on due Goal FIT-DNA. Due on due Goal Pap/HPV testing. Due on due Goal Td vaccine. Due on 24 due Goal Influenza vaccine. Due on due Goal Colonoscopy. Due on [address]-Colonography. Due on due Goal HPV. Due on due Goal PAP. Due on due Goal Depression scree chad. Due on due Goal Mammogram. Due on due Goal Hepatitis C scre ening. Due on due Goal Tobacco cessation counseling completed Goal Sigmoidoscopy. Due on due Goal Depression scree chad. Due on due Goal Zoster vaccine ( 1st). Due on due Goal Tdap. Due on due Goal Colonoscopy. Due on 023 due Goal FIT-DNA. Due on due Goal HPV. Due on due Goal Breast Exam. Due on due Goal Pap/HPV testing. Due on due Goal Mammogram. Due on due Goal Td vaccine. Due on due Goal Breast MRI. Due on due Goal PAP. Due on due Goal Influenza vaccine. Due on Se due Goal Dental exam. Due on 023 due Goal Unhealthy drug u se screening. Due on due Goal Hepatitis C scre ening. Due on due Goal CT-Colonography. Due on due Goal Tobacco cessation counseling completed Referral Ordered: Rheumatology (related to Rheumatoid arthritis) ordered Appointment Annika Finnegan BOOKED Nutrition Recommendation Nutrition therap y completed History Of Present Illness Encounter Date Complaint History Of Prese nt Illness Phone Consult This visit was c ompleted via telephone due to the restrictions of the COVID-19 pandemic. All issues as below were discussed and addressed but no physical exam was performed. If it was felt that the patient should be evaluated in the clinic then they were directed there. The patient verbally consented to visit. Arthritis The patient desc ribes the discomfort as achy. It occurs persistently. The problem is stable. Symptom is aggravated by standing, walking and arising from a chair. Denies relieving factors. The client is experiencing joint swelling and morning stiffness. Pertinent negatives include headache. Goiter Risk factors inc lude age and female. Additional information: Discuss test results. Phone Consult This visit was c ompleted via telephone due to the restrictions of the COVID-19 pandemic. All issues as below were discussed and addressed but no physical exam was performed. If it was felt that the patient should be evaluated in the clinic then they were directed there. The patient verbally consented to visit. Arthritis The patient desc ribes the discomfort as achy, pain with use, catching, sharp and throbbing. It occurs persistently. The problem is worsening. Denies aggravating factors. Denies relieving factors. The client is experiencing abdominal pain, activity limitation and fatigue. Additional information: told cervical stenosis. says she has RA wants to be sent to rheum and pain clinic Functional Status Date Functional Assessmen t No Information Instructions Date Instruction Additional Infor zhou Positive rheumatoid factor/inflammatory markers Ace in prednisone take 10mg once daily for 2 weeks then transition down to 5mg once daily. will see her back in 6 weeks and continue 5mg dose if tolerated until we can get her in with the specialist. Refer to rheumatology. I spent 15 minutes on phone with pt discussing health concerns Related to Rheumatoid arthritis Reviewed with pt res ults of thyroid US. See below. Needs f/u in 6 months and we will recheck to ensure stability. Will start levothyroxine 25mcg once daily in the morning. TSH was just slightly elevated and pt symptomatic. Recheck TSH in 6 weeks or notify me sooner if having an palpitations, increased anxiety/heat intolerance/diarrhea as we may need to stop the medication at that time. all questions answered. IMPRESSION: Mildly enlarged, heterogenous thyroid with small to moderate bilateral solid circumscribed wider than tall nodules, likely benign. Recommend 6-12 month follow-up surveillance ultrasound to further evaluate.I spent 17 minutes on phone with pt discussing health concerns Related to Thyroid nodule FIT Cards Related to Enc nter for screening for malignant neoplasm of colon Sending for all Rolly rds. refer to pain mgmt Related to Spinal stenosis, cervical region check lipid panel. E xercise recommendations: 30 minutes of moderate activity at least 5 days a week. Diet recommendations: avoid fried foods, avoid fast foods, avoid foods high in trans/saturated fats. Eat diet that emphasizes fruits, vegetables, whole grains; includes low fat dairy, poultry, fish, legumes and non tropical nuts and oils. Limit sweets, sugar sweetened beverages, and red meat. Related to Encounter for screening for lipoid disorders US thyroid ordered. Related to Bart ponce she is currently man aged with gabapentin, flexeril, ibuprofen and diclofenac prn. i discussed with her either one NSAID Or other but not both. says she alternates them over time but never takes together. GI precautions reviewed Related to Pain in joint Refer to rheumatolog y. New to this provider-will get updated labs today Related to Rheumatoid arthritis Giving encouragement to exercise Related to Body mass index [BMI] 21.0-21.9, adult Assessments Type Assessment Date No Information Patient Care Teams Name Effective Dates (start - stop) Status Members No Information
[2024-04-24] MEDS: Ketorolac 15 MG/ML VIAL IM (10:30)
[2024-04-24 10:31] VITALS: BP 137/88; PULSE 76; RESP 16; O2SAT 100
[2024-04-24 10:42] VITALS: BP 123/86; PULSE 83; RESP 16; O2SAT 100
== END 2024-04-24 10:44 | disposition home or self-care (01) ==
PROVIDERS: Emergency Provider Nurse Practitioner Family
DX: W07.XXXA Fall from chair, initial encounter; S42.355A Nondisplaced comminuted fracture of shaft of humerus, left arm, initial encounter for closed fracture
CPT/HCPCS: 96372; 99284; 73030; 99283; J1885

== ENCOUNTER 2024-04-27 11:16 | Outpatient (CLI) | payer OTHER, SELFPAY ==
--- NOTE | 2024-04-27 10:53 | DI.RAD_ITS ---
Exam(s) XR SHOULDER LT COMPLETE 2+V EXAM: XR SHOULDER LT COMPLETE 2+V CLINICAL HISTORY: F/U FRACTURE. TECHNIQUE: 2D digital imaging was performed. Three views. COMPARISON: CR,XR XR SHOULDER LT COMPLETE 2+V from 04/24/2024 FINDINGS: BONES: Stable alignment of comminuted proximal humeral fracture.. No bony destructive lesion is seen . JOINTS: No dislocation present. SOFT TISSUE: Normal. IMPRESSION: stable alignment of proximal humeral fracture. DATA REPOSITORY: RADIATION DOSE DELIVERED:
== END 2024-04-27 11:17 | disposition home or self-care (01) ==
LOC: DIORS 11:16
PROVIDERS: Visit Provider Student in an Organized Health Care Education/Training Program
DX: S42.202A Unspecified fracture of upper end of left humerus, initial encounter for closed fracture (principal)
CPT/HCPCS: 73030